=== PATIENT | male | born 1930 | race Caucasian/White ===

== ENCOUNTER 2017-02-12 13:44 | Emergency (ER) | payer OTHER, MEDICARE ==
[~2017-02-12] VITALS: Ht 177.8 cm; Wt 97.2 kg
[~2017-02-12 13:44] MED LIST: ALBU18HF2 IH; ALBU2.5V7 INH; ARFO15VI3 INH; ATOR10TA20 PO; BIMA2.5D6 BOTH EYES; CLOP75TA PO; FAMO-14 PO; FINA5TAB40 PO; FURO20TA4 PO; IRON1TAB PO; LISI-127 PO; NITR0.4T SL; POTA10TA14 PO
[2017-02-12 13:47] VITALS: Ht 177.8 cm; Wt 97.2 kg
--- OUTSIDE RECORDS SUMMARY | 2017-02-12 13:49 | XMS REPORT | CCD ---
Author Author PIPE CRANDALL Organization Unknown Address [address] [place] [phone] Phone 0 Care Team Providers Care Ventilating Equipment Installer Name Role Phone FOZIA TINEO Attending Physician 0 F., LEILA Nurse Assisstant 0 J., ANKUR Nurse Assisstant 0 Vital Signs Unknown or Not Available. Allergies Allergy Code Allergy Type Reaction Status No Known Drug Allergies 0 No known drug allergies Active Procedures Unknown or Not Available. History of Immunizations Unknown or Not Available. Problems Unknown or Not Available. Results PT/INR - Collect Date/Time: 05/01/2015 06:45 Test Name Code Test Result Test Units Test Ref Range PT 27.0 Secs L=9.2 H=10.8 INR 2.54 L=0.00 H=4.00 PT/INR - Collect Date/Time: 04/30/2015 06:40 Test Name Code Test Result Test Units Test Ref Range PT 21.9 Secs L=9.2 H=10.8 INR 2.09 L=0.00 H=4.00 PT/INR - Collect Date/Time: 04/29/2015 06:40 Test Name Code Test Result Test Units Test Ref Range PT 16.3 Secs L=9.2 H=10.8 INR 1.58 L=0.00 H=4.00 PT/INR - Collect Date/Time: 04/28/2015 06:45 Test Name Code Test Result Test Units Test Ref Range PT 13.8 Secs L=9.2 H=10.8 INR 1.35 L=0.00 H=4.00 PT/INR - Collect Date/Time: 04/27/2015 06:45 Test Name Code Test Result Test Units Test Ref Range PT 14.5 Secs L=9.2 H=10.8 INR 1.42 L=0.00 H=4.00 PT/INR - Collect Date/Time: 04/26/2015 06:55 Test Name Code Test Result Test Units Test Ref Range PT 16.0 Secs L=9.2 H=10.8 INR 1.56 L=0.00 H=4.00 PT/INR - Collect Date/Time: 04/25/2015 06:55 Test Name Code Test Result Test Units Test Ref Range PT 16.0 Secs L=9.2 H=10.8 INR 1.56 L=0.00 H=4.00 PT/INR - Collect Date/Time: 04/24/2015 06:45 Test Name Code Test Result Test Units Test Ref Range PT 18.2 Secs L=9.2 H=10.8 INR 1.76 L=0.00 H=4.00 PT/INR - Collect Date/Time: 04/23/2015 06:35 Test Name Code Test Result Test Units Test Ref Range PT 11.8 Secs L=9.2 H=10.8 INR 1.17 L=0.00 H=4.00 Active Medications Unknown or Not Available. Medications Administered During Visit Unknown or Not Available. Encounters Encounter Diagnosis Diagnosis Code Start Date ACU TANVI EMB/[place] [address] 04/23/2015 Social History Smoking Status Code Start Date End Date Unknown if ever smoked [id number] Patient Decision Aids Unknown or Not Available. Discharge Instructions You were admitted to [facility] on 04/23/2015 with a principal diagnosis of ACU TANVI EMB/THROM UNSPEC DP VESS LE. You were discharged from [facility] on 05/01/2015. Should you have any questions prior to discharge, please contact a member of your healthcare team. If you have left the hospital and have any questions, please contact your primary care physician. Chief Complaint and Reason For Visit Unknown or Not Available. Function Status Unknown or Not Available. Plan of Care Unknown or Not Available. Referral/Transition of Care Unknown or Not Available.
--- OUTSIDE RECORDS SUMMARY | 2017-02-12 13:49 | XMS REPORT | Referral Summary ---
Author Author [facility] Organization [facility] Address Unknown Phone Unavailable Care Team Providers Care Railroad Mechanic Name Role Phone Shannan Villarreal Primary Care Physician [phone] Encounter VC Date(s): 04/09/15 - 04/09/15 [facility] [address] [place] [address] LEANDER Kang [id number] Discharge Diagnosis: BPH Discharge Diagnosis: History of bladder cancer Discharge Diagnosis: History of kidney stones Discharge Disposition: -Home or Self Care Attending Physician: Donta Rey JR, MD Admitting Physician: Donta Rey JR, MD Referring Physician: Toi Saunders DO Vital Signs Most recent to 1 oldest [Reference Range]: Peripheral Pulse 82 bpm Rate [60-100 bpm] (04/09/15 9:22 AM) Blood Pressure 124/66 mmHg [90-140/60-90 mmHg] (04/09/15 9:22 AM) SpO2 95 % (04/09/15 9:22 AM) Problem List Condition Effective Dates Status Health Status Informant History of left Active upper quadrant/abdominal/f lank pain(Confirmed) History of Active hydronephrosis,hemat uria, and BPH with prostatism(Confirmed ) Kidney Active stone(Confirmed) Bladder Active cancer(Confirmed) Obesity(Confirmed) Active patient Obesity(Confirmed) Active patient BPH with prostatism Active Prostatism(Confirmed ) Allergies, Adverse Reactions, Alerts No Known Medication Allergies Medications Advair Diskus 100 mcg-50 mcg inhalation powder puffs, Inhalation, BID, 0 Refill(s) Start Date: 03/11/14 Status: Ordered enalapril 2.5 mg oral tablet 1 tabs, Oral, Daily, 0 Refill(s) Start Date: 03/11/14 Status: Ordered famotidine 10 mg oral tablet 1 tabs, Oral, BID, 0 Refill(s) Start Date: 03/11/14 Status: Ordered finasteride 5 mg oral tablet See Instructions, TAKE ONE TABLET BY MOUTH ONCE DAILY, # 90 tabs, 3 Refill(s), TAKE ONE TABLET BY MOUTH ONCE DAILY Start Date: 04/09/15 Status: Ordered FML S.O.P. 0.1% ophthalmic ointment 1 keysha, Eye-Both, TID, # 3.5 g, 0 Refill(s) Start Date: 03/11/14 Status: Ordered garlic 0 Refill(s) Start Date: 03/11/14 Status: Ordered Geritol Complete tabs, Oral, Daily, 0 Refill(s) Start Date: 03/11/14 Status: Ordered hydrochlorothiazide 12.5 mg oral tablet 1 tabs, Oral, Daily, 0 Refill(s) Start Date: 03/11/14 Status: Ordered Lipitor 10 mg oral tablet 1 tabs, Oral, Bedtime (once a day), 0 Refill(s) Start Date: 03/11/14 Status: Ordered magnesium oxide 250 mg, Oral, 0 Refill(s) Start Date: 03/11/14 Status: Ordered tamsulosin 0.4 mg oral capsule 1 caps, Oral, Daily, # 30 caps, 0 Refill(s), Pharmacy: [id number], 1 caps Oral Daily Start Date: 11/14/14 Status: Ordered Ventolin HFA puffs, Inhalation, QID, 0 Refill(s) Start Date: 03/11/14 Status: Ordered Vitamin B6 50 mg oral tablet 1 tabs, Oral, Daily, 0 Refill(s) Start Date: 03/11/14 Status: Ordered Vitamin C 0 Refill(s) Start Date: 03/11/14 Status: Ordered Vitamin D3 1000unit, Oral, 0 Refill(s) Start Date: 03/11/14 Status: Ordered vitamin E 1000unit, Oral, Daily, 0 Refill(s) Start Date: 03/11/14 Status: Ordered Results Hematology Most recent to 1 oldest [Reference Range]: WBC [5.0-10.0 6.5 10*3/uL 10*3/uL] (04/09/15 8:55 AM) RBC [3.70-5.20 5.36 10*6/uL 10*6/uL] *HI* (04/09/15 8:55 AM) Hgb [12.0-16.0 16.9 gm/dL gm/dL] *HI* (04/09/15 8:55 AM) Hct [40.0-54.0 %] 49.5 % (04/09/15 8:55 AM) MCV [80.0-96.0 fL] 92.4 fL (04/09/15 8:55 AM) MCH [26.0-34.0 pg] 31.5 pg (04/09/15 8:55 AM) MCHC [32.0-36.0 34.1 gm/dL gm/dL] (04/09/15 8:55 AM) RDW [0.0-14.5 %] 13.4 % (04/09/15 8:55 AM) Platelet [150-400 221 10*3/uL 10*3/uL] (04/09/15 8:55 AM) MPV [8.8-14.8 fL] 10.2 fL (04/09/15 8:55 AM) Neutrophils [50-70 68 % %] (04/09/15 8:55 AM) Lymphocytes [20-40 16 % %] *LOW* (04/09/15 8:55 AM) Monocytes [4-8 %] 14 % *HI* (04/09/15 8:55 AM) Eosinophils [0-6 %] 2 % (04/09/15 8:55 AM) Basophils [0-2 %] 1 % (04/09/15 8:55 AM) Neutro Absolute 4.43 10*3 [2.50-7.00 10*3] (04/09/15 8:55 AM) Lymph Absolute 1.06 10*3 [1.00-4.00 10*3] (04/09/15 8:55 AM) [place] Absolute 0.89 10*3 [0.20-0.80 10*3] *HI* (04/09/15 8:55 AM) Eos Absolute 0.12 10*3 [0.00-0.60 10*3] (04/09/15 8:55 AM) Baso Absolute 0.04 10*3 [0.00-0.30 10*3] (04/09/15 8:55 AM) Chemistry Most recent to 1 oldest [Reference Range]: PSA (wihout Reflex 0.1 ng/mL 1 Free) [0.0-6.5 (04/09/15 8:55 AM) ng/mL] 1Result Comment: AUA PSA Best Practice Guidelines: Age-Adjusted PSA Values by Ethnic Group Age Range Asians - Caucasians Americans 40-49 0-2.0 0-2.0 0-2.5 50-59 0-3.0 0-4.0 0-3.5 60-69 0-4.0 0-4.5 0-4.5 70-79 0-5.0 0-5.5 0-6.5 Urinalysis Most recent to 1 oldest [Reference Range]: UA Color Yellow (04/09/15 9:00 AM) UA Appear Clear (04/09/15 9:00 AM) UA pH [5.0-8.0] 6.0 (04/09/15 9:00 AM) UA Leuk Est Negative [Negative] (04/09/15 9:00 AM) UA Nitrite Negative [Negative] (04/09/15 9:00 AM) UA Protein Trace [Negative] *ABN* (04/09/15 9:00 AM) UA Glucose Negative [Negative] (04/09/15 9:00 AM) UA Ketones Negative [Negative] (04/09/15 9:00 AM) UA Urobilinogen 0.2 mg/dL (04/09/15 9:00 AM) UA Bili [Negative] Negative (04/09/15 9:00 AM) UA Blood Negative (04/09/15 9:00 AM) UA Spec Grav 1.020 [1.003-1.030] (04/09/15 9:00 AM) Type Cl Catch (04/09/15 9:00 AM) Immunizations No data available for this section Procedures Procedure Date Related Diagnosis Body Site Cystoscopy 02/20/13 Cystoscopy 12/29/10 Cystoscopy-no recurrent bladdr cancer 06/11/10 Cystoscopy 08/21/09 Cystoscopy 02/11/09 Cystoscopy, bladder biopsy, and fulguration 11/26/08 Procedure- BCG bladder instillation 11/04/08 Procedure- BCG bladder instillation 10/21/08 Procedure-4th BCG bladder instillation 10/07/08 Procedure-3rd BCG bladder instillation 09/30/08 Procedure-2nd BCG bladder instillation 09/23/08 Procedure-1st BCG bladder instillation 09/09/08 Cystoscopy, hydrodistention and bladder 08/11/08 biopsy Left renal Lithotripsy 04/19/06 Cystourethroscopy, and removal of double j 06/13/01 stent Lithotripsy 06/06/01 Lithotripsy 05/30/01 Cystourethroscopy, and insertion of double j 05/28/01 stent Social History Social History Type Response Smoking Status Former smoker Assessment and Plan Extracted from: Title: Ambulatory Patient Education Author: Donta Rey JR, MD Date : 04/09/15 Follow Up With: Where: When: Toi Saunders [address] [place] [address] Business (1) Within 3 to 5 days Comments: Follow Up With: Where: When: Donta Rey [address] [place] [address] Drive; [address] [place], [place] [phone] Business (1) In 1 year 04/09/2016 Comments: Extracted from: Title: Office Visit Note Author: Donta Rey JR, MD Date: 04/09/15 Assessment/Plan BPH continue finasteride and tamsulosin. Recheck in my office in a year or sooner if needed PSA a week before next visit. With regards to the follow-up of his bladder cancer, AP is voiding well have not seen any bleeding the urine I would not see him again also in about a year. With regards to his kidney stones in time he has pain especially on the flank or bladder area to come and see me immediately instead of waiting for months. Patient instructed to drink at least 8-10 glasses of liquids a day, reduce intake of caffeine red meat nuts and too much salted food. This was a 30 minute face to face visit with 1/2 of the visit devoted to counseling the patient. Ordered: Office Visit Level 4 Est 58281 Prostate Specific Antigen History of bladder cancer Ordered: Office Visit Level 4 Est 73039 History of kidney stones Ordered: Office Visit Level 4 Est 07712 Orders: finasteride, See Instructions, TAKE ONE TABLET BY MOUTH ONCE DAILY, # 90 tabs, 3 Refill(s), TAKE ONE TABLET BY MOUTH ONCE DAILY
--- OUTSIDE RECORDS SUMMARY | 2017-02-12 13:49 | XMS REPORT | Referral Summary ---
Author Author [facility] Organization [facility] Address Unknown Phone Unavailable Care Team Providers Care Middle School English Teacher Name Role Phone Shannan Villarreal Primary Care Physician [phone] Encounter VC Date(s): 04/09/15 - 04/09/15 [facility] [address] [place] [address] LEANDER Kang [id number] Discharge Diagnosis: BPH Discharge Diagnosis: History of [...] Daily, # 30 caps, 0 Refill(s), Pharmacy: [id number], 1 caps Oral Daily Start [...] 1.06 10*3 [1.00-4.00 10*3] (04/09/15 8:55 AM) [place] Absolute 0.89 10*3 [0.20-0.80 10*3] *HI* (04/09/15 [...] Where: When: Toi Saunders [address] [place] [address] Business (1) Within 3 to 5 days Comments: Follow Up With: Where: When: Donta Rey [address] [place] [address] Drive; [address] [place], [place] [phone] Business (1) In 1 year 04/09/2016 Comments: [...] patient. Ordered: Office Visit Level 4 Est 92734 Prostate Specific Antigen History of bladder cancer Ordered: Office Visit Level 4 Est 86900 History of kidney stones Ordered: Office Visit Level 4 Est 14932 Orders: finasteride, See Instructions, TAKE ONE TABLET BY MOUTH ONCE DAILY, # 90 tabs, 3 Refill(s), TAKE ONE TABLET BY MOUTH ONCE DAILY
--- OUTSIDE RECORDS SUMMARY | 2017-02-12 13:49 | XMS REPORT | CCD ---
Author Author PIPE CRANDALL Organization Unknown Address [address] [place] [phone] Phone 0 Care Team Providers Care Catering Sales Manager Name Role Phone JERMAN GANN Attending Physician [phone] Vital Signs Unknown or Not Available. Allergies Allergy Code Allergy Type Reaction Status No Known Drug Allergies 0 No known drug allergies Active Procedures Unknown or Not Available. History of Immunizations Unknown or Not Available. Problems Unknown or Not Available. Results COMP METABOLIC - Collect Date/Time: 09/10/2014 08:25 Test Name Code Test Result Test Units Test Ref Range GLUCOSE 95 mg/dL L=70 H=110 BUN 15 mg/dL L=7 H=18 CREATININE 1.20 mg/ dL L=0.60 H=1.30 AGE 83 YEARS GFR 61.3 SODIUM 140 mmol/L L=136 H=145 POTASSIUM 3.9 mmol/ L L=3.5 H=5.1 CHLORIDE 101 mmol/L L=98 H=107 CO2 34 mmol/L L=21 H=32 CALCIUM 9.5 mg/dL L=8.5 H=10.1 AST 16 U/L L=15 H=37 ALT 29 U/L L=12 H=78 ALKALINE PHOS 93 U/ L L=46 H=116 TOTAL PROTEIN 7.5 g/ dL L=6.4 H=8.2 ALBUMIN 3.6 g/dL L=3.4 H=5.0 TOTAL BILI 0.60 mg/ dL L=0.00 H=1.00 HGB A1C - Collect Date/Time: 09/10/2014 08:25 Test Name Code Test Result Test Units Test Ref Range HGB A1C 5.5 % L=4.5 H=6.2 eAG 111 mg/dL LIPID PANEL - Collect Date/Time: 09/10/2014 08:25 Test Name Code Test Result Test Units Test Ref Range CHOLESTEROL 148 mg/ dL L=0 H=200 TRIGLYCERIDES 118 mg /dL L=30 H=150 HDL 57 mg/dL L=40 H=60 LDL, CALC 67 mg/dL L=0 H=100 VLDL 24 mg/dL L=0 H=40 CHOL/HDL RISK 2.6 RATIO L=0.0 H=5.0 PT FASTING: YES N/A PSA - SCREENING - Collect Date/Time: 09/10/2014 08:25 Test Name Code Test Result Test Units Test Ref Range PSA SCREEN 0.19 ng/ mL L=0.00 H=4.00 MICROALBUMIN/CREATININE RATIO - Collect Date/Time: 09/10/2014 08:30 Test Name Code Test Result Test Units Test Ref Range MICROALBUMIN 1.7 mg/ dL L=0.1 H=2.0 CREAT, URINE 162.1 mg/dL MICROALB/CREAT 10.5 ug/mg L=0.0 H=29.9 CBC W/ DIFF - Collect Date/Time: 09/10/2014 08:25 Test Name Code Test Result Test Units Test Ref Range WBC 6.9 x10^3 L=4.8 H=10.8 RBC 5.23 x10^6 L=4.70 H=6.10 HEMOGLOBIN 15.8 g/ dL L=14.0 H=18.0 HEMATOCRIT 48.5 % L=42.0 H=52.0 MCV 93 fL L=80 H=100 MCH 30.3 pg L=27.0 H=33.0 MCHC 32.6 g/dL L=33.0 H=37.0 RDW 13.9 % L=11.5 H=14.5 PLATELETS 310 x10^3 L=150 H=450 MPV 8.3 fL L=7.8 H=11.0 NEUTROPHILS 64.9 % L=40.0 H=80.0 LYMPHOCYTES 19.8 % L=20.0 H=45.0 MONOCYTES 12.4 % L=0.0 H=10.0 EOSINOPHILS 2.4 % L=0.0 H=5.0 BASOPHILS 0.5 % L=0.0 H=2.0 REFLEX MAN DIFF NO N /A UA AUTO W/ MICRO - Collect Date/Time: 09/10/2014 08:30 Test Name Code Test Result Test Units Test Ref Range COLOR Yellow N/A NORMAL: Yellow APPEARANCE Clear N/ A NORMAL: Clear GLUCOSE Negative N/ A NORMAL: Negative BILIRUBIN Negative N /A NORMAL: Negative KETONE Negative N/A NORMAL: Negative SPEC GRAVITY 1.020 N /A NORMAL: 1.005-1.030 BLOOD Large N/A PROTEIN Negative N/ A NORMAL: Negative PH 6.0 N/A NORMAL: 5.0-8.0 UROBILINOGEN 1.0 N/ A NORMAL: 0.2-1.0 NITRITE Negative N/ A NORMAL: Negative LEUKOCYTES Negative N/A NORMAL: Negative MICRO RBC 10-20 N/A NORMAL: 0-2 MICRO WBC 0-2 N/A NORMAL: 0-2 BACTERIA None Seen N /A NORMAL: None-Trace EPI CELLS None Seen N/A NORMAL: 0-15 MUCUS Trace N/A NORMAL: None-Small AMORPHOUS None Seen N/A NORMAL: None Seen YEAST None Seen N/A NORMAL: None Seen CRYSTALS None Seen N /A NORMAL: None Seen CAST None Seen N/A NORMAL: None Seen URINE CULTURE? NO N/ A Active Medications Unknown or Not Available. Medications Administered During Visit Unknown or Not Available. Encounters Encounter Diagnosis Diagnosis Code Start Date HYPERLIPIDEMIA NEC NOS 2724 09/10/2014 Social History Smoking Status Code Start Date End Date Unknown if ever smoked [id number] Patient Decision Aids Unknown or Not Available. Discharge Instructions You were admitted to [facility] on 09/10/2014 with a principal diagnosis of HYPERLIPIDEMIA NEC NOS. You were discharged from [facility] on 09/10/2014. Should you have any questions prior to discharge, please contact a member of your healthcare team. If you have left the hospital and have any questions, please contact your primary care physician. Chief Complaint and Reason For Visit Chief Complaint Date of Onset LAB Function Status Unknown or Not Available. Plan of Care Unknown or Not Available. Referral/Transition of Care Unknown or Not Available.
--- OUTSIDE RECORDS SUMMARY | 2017-02-12 13:49 | XMS REPORT | CCD ---
Author Author PIPE CRANDALL Organization Unknown Address [address], [place] [phone] Phone 0 Care Team Providers Care Oceanography Professor Name Role Phone JERMAN GANN Attending Physician [phone] Vital Signs Unknown or Not Available. Allergies Allergy Code Allergy Type Reaction Status No Known Drug Allergies 0 No known drug allergies Active Procedures Unknown or Not Available. History of Immunizations Unknown or Not Available. Problems Unknown or Not Available. Results Unknown or Not Available. Active Medications Unknown or Not Available. Medications Administered During Visit Unknown or Not Available. Encounters Encounter Diagnosis Diagnosis Code Start Date HEMATURIA UNSPECIFIED 28713 09/11/2014 Social History Smoking Status Code Start Date End Date Unknown if ever smoked [id number] Patient Decision Aids Unknown or Not Available. Discharge Instructions You were admitted to [facility] on 09/11/2014 with a principal diagnosis of HEMATURIA UNSPECIFIED. You were discharged from [facility] on 09/11/2014. Should you have any questions prior to [...]
--- OUTSIDE RECORDS SUMMARY | 2017-02-12 13:49 | XMS REPORT ---
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 666076630086986 Problem Chronic obstructive pulmonary disease, unspecified J44.9 Active 60425969 Problem Hyperlipidemia, unspecified E78.5 Active 60689586 Problem Essential (primary) hypertension I10 Active 32936664 Problem Intercostal pain R07.82 Active 37869109 Problem Acute embolism and thrombosis of unspecified deep veins of right lower extremity I82.401 Active 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
--- OUTSIDE RECORDS SUMMARY | 2017-02-12 13:49 | XMS REPORT | CCD ---
Author Author ZANDRA REAL Organization Unknown Address [address] [place] [phone] Phone 0 Care Team Providers Care Cigarette Tester Name Role Phone FOZIA TINEO Attending Physician 0 JERMAN GANN Rounding Physician [phone] Vital Signs Unknown or Not Available. Allergies Allergy Code Allergy Type Reaction Status No Known Drug Allergies 0 No known drug allergies Active Procedures Unknown or Not Available. History of Immunizations Unknown or Not Available. Problems Unknown or Not Available. Results PT/INR - Collect Date/Time: 05/19/2015 07:50 Test Name Code Test Result Test Units Test Ref Range PT 22.1 Secs L=9.2 H=10.8 INR 2.11 L=0.00 H=4.00 PT/INR - Collect Date/Time: 05/14/2015 07:40 Test Name Code Test Result Test Units Test Ref Range PT 33.3 Secs L=9.2 H=10.8 INR 3.10 L=0.00 H=4.00 PT/INR - Collect Date/Time: 05/11/2015 06:45 Test Name Code Test Result Test Units Test Ref Range PT 25.4 Secs L=9.2 H=10.8 INR 2.40 L=0.00 H=4.00 PT/INR - Collect Date/Time: 05/06/2015 06:58 Test Name Code Test Result Test Units Test Ref Range PT 32.5 Secs L=9.2 H=10.8 INR 3.03 L=0.00 H=4.00 PT/INR - Collect Date/Time: 05/04/2015 06:45 Test Name Code Test Result Test Units Test Ref Range PT 27.2 Secs L=9.2 H=10.8 INR 2.56 L=0.00 H=4.00 Active Medications Unknown or Not Available. Medications Administered During Visit Unknown or Not Available. Encounters Encounter Diagnosis Diagnosis Code Start Date ACU TANVI EMB[place] [address] 05/04/2015 Social History Smoking Status Code Start Date End Date Unknown if ever smoked [id number] Patient Decision Aids Unknown or Not Available. Discharge Instructions You were admitted to [facility] on 05/04/2015 with a principal diagnosis of ACU TANVI EMB/THROM UNSPEC DP VESS LE. Should you have any questions prior to discharge, please contact a member of your healthcare team. If you have left the hospital and have any questions, please contact your primary care physician. Chief Complaint and Reason For Visit Chief Complaint Date of Onset RECURRING OP Function Status Unknown or Not Available. Plan of Care Unknown or Not Available. Referral/Transition of Care Unknown or Not Available.
--- OUTSIDE RECORDS SUMMARY | 2017-02-12 13:49 | XMS REPORT | CCD ---
Author Author NARCISA MUELLER Organization Unknown Address [address], [place] [id number] Phone 0 Care Team Providers Care Safety Attendant Name Role Phone JERMAN GANN Attending Physician [phone] Vital Signs Unknown or Not Available. Allergies Allergy Code Allergy Type Reaction Status No Known Drug Allergies 0 No known drug allergies Active Procedures Unknown or Not Available. History of Immunizations Unknown or Not Available. Problems Unknown or Not Available. Results PT/INR - Collect Date/Time: 2015 08:20 Test Name Code Test Result Test Units Test Ref Range PT 22.5 Secs L=9.2 H=10.8 INR 2.14 L=0.00 H=4.00 Active Medications Unknown or Not Available. Medications Administered During Visit Unknown or Not Available. Encounters Encounter Diagnosis Diagnosis Code Start Date Acute embolism and thrombosis of unspecified deep veins of unspecified lower extremity S71751 2015 Social History Smoking Status Code Start Date End Date Unknown if ever smoked 638881512 Patient Decision Aids Unknown or Not Available. Discharge Instructions You were admitted to [facility] on 2015 08:20 with a principal diagnosis of Acute embolism and [place]omb[place] unsp deep vn unsp lower extr You had the following tests done: PT/ INR You were discharged from [facility] Should you have any questions prior to discharge, please contact a member of your healthcare team. If you have left the hospital and have any questions, please contact your primary care physician. Chief Complaint and Reason For Visit Chief Complaint Date of Onset RECURRING LABS Function Status Unknown or Not Available. Plan of Care Unknown or Not Available. Referral/Transition of Care Unknown or Not Available.
--- OUTSIDE RECORDS SUMMARY | 2017-02-12 13:49 | XMS REPORT | CCD ---
Author Author NARCISA MUELLER Organization Unknown Address [address], [place] [address] Phone 0 Care Team Providers Care Model Dresser Name Role Phone Alice KILPATRICK Attending Physician [phone] JERMAN GANN Rounding Physician [phone] Vital Signs Unknown or Not Available. Allergies Allergy Code Allergy Type Reaction Status No Known Drug Allergies 0 No known drug allergies Active Procedures Unknown or Not Available. History of Immunizations Unknown or Not Available. Problems Unknown or Not Available. Results BASIC METABOLIC - Collect Date/Time: 03/02/2016 07:55 Test Name Code Test Result Test Units Test Ref Range GLUCOSE 101 mg/dL L=70 H=110 BUN 17 mg/dL L=7 H=18 CREATININE 1.15 mg/ dL L=0.60 H=1.30 AGE 85 YEARS GFR 60.3 SODIUM 139 mmol/L L=136 H=145 POTASSIUM 3.9 mmol/ L L=3.5 H=5.1 CHLORIDE 102 mmol/L L=98 H=107 CO2 29 mmol/L L=21 H=32 CALCIUM 9.3 mg/dL L=8.5 H=10.1 HEPATIC FUNCTION - Collect Date/Time: 03/02/2016 07:55 Test Name Code Test Result Test Units Test Ref Range AST 19 U/L L=15 H=37 ALT 26 U/L L=12 H=78 ALKALINE PHOS 78 U/ L L=46 H=116 TOTAL PROTEIN 7.6 g/ dL L=6.4 H=8.2 ALBUMIN 3.6 g/dL L=3.4 H=5.0 TOTAL BILI 0.80 mg/ dL L=0.00 H=1.00 DIRECT BILI 0.10 mg/ dL L=0.00 H=0.30 LIPID PANEL - Collect Date/Time: 03/02/2016 07:55 Test Name Code Test Result Test Units Test Ref Range CHOLESTEROL 146 mg/ dL L=0 H=200 TRIGLYCERIDES 96 mg/ dL L=30 H=150 HDL 55 mg/dL L=40 H=60 LDL, CALC 72 mg/dL L=0 H=100 VLDL 19 mg/dL L=0 H=40 CHOL/HDL RISK 2.7 RATIO L=0.0 H=5.0 PT FASTING: YES N/A PT/INR - Collect Date/Time: 03/02/2016 07:55 Test Name Code Test Result Test Units Test Ref Range PT 20.4 Secs L=9.2 H=10.8 INR 1.95 L=0.00 H=4.00 Active Medications Unknown or Not Available. Medications Administered During Visit Unknown or Not Available. Encounters Encounter Diagnosis Diagnosis Code Start Date Hyperlipidemia, unspecified E785 2015 Social History Smoking Status Code Start Date End Date Unknown if ever smoked [id number] Patient Decision Aids Unknown or Not Available. Discharge Instructions You were admitted to [facility] on 03/02/2016 07:48 with a principal diagnosis of Hyperlipidemia, unspecified You had the following tests done: BASIC METABOLIC HEPATIC FUNCTION LIPID PANEL PT/INR You were discharged from [facility] Should you have any questions [...]
--- OUTSIDE RECORDS SUMMARY | 2017-02-12 13:49 | XMS REPORT | CCD ---
Author Author NARCISA MUELLER Organization Unknown Address [address], [place] [address] Phone 0 Care Team Providers Care Satellite Tv Installer Name Role Phone JERMAN GANN Attending Physician [phone] Alice KILPATRICK Rounding Physician [phone] Vital Signs Unknown or Not Available. Allergies Allergy Code Allergy Type Reaction Status No Known Drug Allergies 0 No known drug allergies Active Procedures Procedure Code Procedure Type Date CHEST [id number] 01/08/2016 History of Immunizations Unknown or Not Available. Problems Unknown or Not Available. Results COMP METABOLIC - Collect Date/Time: 01/08/2016 08:45 Test Name Code Test Result Test Units Test Ref Range GLUCOSE 111 mg/dL L=70 H=110 BUN 18 mg/dL L=7 H=18 CREATININE 1.18 mg/ dL L=0.60 H=1.30 AGE 85 YEARS GFR 58.5 SODIUM 141 mmol/L L=136 H=145 POTASSIUM 3.8 mmol/ L L=3.5 H=5.1 CHLORIDE 103 mmol/L L=98 H=107 CO2 31 mmol/L L=21 H=32 CALCIUM 9.0 mg/dL L=8.5 H=10.1 AST 21 U/L L=15 H=37 ALT 33 U/L L=12 H=78 ALKALINE PHOS 81 U/ L L=46 H=116 TOTAL PROTEIN 7.5 g/ dL L=6.4 H=8.2 ALBUMIN 3.8 g/dL L=3.4 H=5.0 TOTAL BILI 0.60 mg/ dL L=0.00 H=1.00 PRO B-TYPE NATRIURETIC PEPTIDE - Collect Date/Time: 01/08/2016 08:45 Test Name Code Test Result Test Units Test Ref Range PBNP 636 pg/mL L=0 H=450 CBC (HEMOGRAM ONLY) - Collect Date/Time: 01/08/2016 08:45 Test Name Code Test Result Test Units Test Ref Range WBC 5.9 x10^3 L=4.8 H=10.8 RBC 5.32 x10^6 L=4.70 H=6.10 HEMOGLOBIN 16.0 g/ dL L=14.0 H=18.0 HEMATOCRIT 48.4 % L=42.0 H=52.0 MCV 91 fL L=80 H=100 MCH 30.1 pg L=27.0 H=33.0 MCHC 33.1 g/dL L=33.0 H=37.0 RDW 14.1 % L=11.5 H=14.5 PLATELETS 213 x10^3 L=150 H=450 MPV 8.8 fL L=7.8 H=11.0 Active Medications Unknown or Not Available. Medications Administered During Visit Unknown or Not Available. Encounters Encounter Diagnosis Diagnosis Code Start Date Unspecified atrial fibrillation [id number] 05/2016 Social History Smoking Status Code Start Date End Date Unknown if ever smoked [id number] Patient Decision Aids Unknown or Not Available. Discharge Instructions You were admitted to [facility] on 01/08/2016 08:37 with a principal diagnosis of Unspecified atrial fibrillation You had the following tests done: CBC ( HEMOGRAM ONLY) COMP METABOLIC PRO B- TYPE NATRIURETIC PEPTIDE You were discharged from [facility] on 01/08/2016 08:37 Should you have any questions prior to discharge, please contact a member of your healthcare team. If you have left the hospital and have any questions, please contact your primary care physician. Chief Complaint and Reason For Visit Chief Complaint Date of Onset US VENOUS RT LOWER EXT EKG LAB Function Status Unknown or Not Available. Plan of Care Unknown or Not Available. Referral/Transition of Care Unknown or Not Available.
--- OUTSIDE RECORDS SUMMARY | 2017-02-12 13:49 | XMS REPORT | CCD ---
Author Author NARCISA MUELLER Organization Unknown Address [address], [place] [address] Phone 0 Care Team Providers Care Talent Acquisition Specialist Name Role Phone JERMAN GANN Attending Physician [phone] Vital Signs Unknown or Not Available. Allergies Allergy Code Allergy Type Reaction Status No Known Drug Allergies 0 No known drug allergies Active Procedures Unknown or Not Available. History of Immunizations Unknown or Not Available. Problems Unknown or Not Available. Results MICROALBUMIN/CREATININE RATIO - Collect Date/Time: 04/19/2016 08:45 Test Name Code Test Result Test Units Test Ref Range MICROALBUMIN 3.3 mg/ dL L=0.1 H=2.0 CREAT, URINE 155.5 mg/dL MICROALB/CREAT 21.2 ug/mg L=0.0 H=29.9 PT/INR - Collect Date/Time: 04/19/2016 08:43 Test Name Code Test Result Test Units Test Ref Range PT 21.3 Secs L=9.4 H=11.0 INR 2.12 L=0.00 H=4.00 Active Medications Unknown or Not Available. Medications Administered During Visit Unknown or Not Available. Encounters Encounter Diagnosis Diagnosis Code Start Date Acute embolism and thrombosis of unspecified deep veins of unspecified lower extremity [id number] 04/19/2016 Social History Smoking Status Code Start Date End Date Unknown if ever smoked [id number] Patient Decision Aids Unknown or Not Available. Discharge Instructions You were admitted to [facility] on 04/19/2016 08:36 with a principal diagnosis of Acute embolism and thombos unsp deep vn unsp lower extr You had the following tests done: MICROALBUMIN/CREATININE RATIO PT/INR You were discharged from [facility] on 05/01/2016 23:59 Should you have any questions prior to [...]
--- OUTSIDE RECORDS SUMMARY | 2017-02-12 13:49 | XMS REPORT | Referral Summary ---
Author Author [facility] Organization [facility] Address Unknown Phone Unavailable Care Team Providers Care Media Theorist And Author Of Name Role Phone Shannan Villarreal Primary Care Physician [phone] Encounter VC Date(s): 07/30/15 - 07/30/15 [facility] [address] [place] [address] LEANDER Kang [id number] Discharge Diagnosis: Recent cerebrovascular accident Discharge Diagnosis: Microscopic hematuria Discharge Diagnosis: Bladder cancer Discharge Disposition: 01-Home or Self Care Attending Physician: Donta Rey JR, MD Admitting Physician: Donta Rey JR, MD Referring Physician: Zulma Villarreal (Nita) Vital Signs Most recent to 1 oldest [Reference Range]: Peripheral Pulse 87 bpm Rate [60-100 bpm] (07/30/15 3:27 PM) Blood Pressure 140/62 mmHg [90-140/60-90 mmHg] (07/30/15 3:27 PM) Problem List Condition Effective Dates Status Health [...] Daily, # 30 caps, 0 Refill(s), Pharmacy: [id number], 1 caps Oral Daily [...] Refill(s) Start Date: 03/11/14 Status: Ordered Results No data available for this section Immunizations No data available for this section Procedures Procedure Date Related Diagnosis Body Site Cystoscopy 02/20/13 Cystoscopy 12/29/10 Cystoscopy-no recurrent bladdr cancer 06/11/10 Cystoscopy 08/21/09 Cystoscopy 02/11/09 Cystoscopy, bladder biopsy, and fulguration 11/26/08 Procedure-6th BCG bladder instillation 11/04/08 Procedure-5th BCG bladder instillation 10/21/08 Procedure-4th BCG bladder [...] Author: Donta Rey JR, MD Date : 07/30/15 Follow Up With: Where: When: Zulma (Shruti) Phil [address] [place] [address] Business (1) Within 3 to 5 days Comments: Follow Up With: Where: When: Donta Rey [address] [place] [address] Drive; [address] [place], [place] [id number] Business (1) In 6 weeks 09/10/2015 Comments: Extracted from: Title: Office Visit Note Author: Donta Rey JR, MD Date: 07/30/15 Assessment/Plan 1.Bladder cancer most recent cystoscopy done about 6 month ago revealed no recurrent bladder cancer seen 2.Recent cerebrovascular accident patient takes warfarin 9 mg daily Microscopic hematuria CAT scan that was done recently showed no evidence of any suspicious lesion in the bladder ureter or kidney. Suspecting strongly that the [employer] hematuria might be due to the and is taking for his cerebrovascular accident and blood clots on his right leg. We'll repeat urinalysis in 6 weeks or to come and see me sooner if he notices gross hematuria. Therisk of doing cystoscopy on a patient for I have to take him stop taking the warfarin would be too risky at the present time because of recent cerebrovascular accident and blood clots in the right leg CAT scan of the abdomen and pelvis revealed no abnormalities in the urinary bladder Ordered: Office Visit Level 3 Est 05971 Urinalysis with Culture if Indicated
--- OUTSIDE RECORDS SUMMARY | 2017-02-12 13:49 | XMS REPORT ---
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.2 Active Problem Acute embolism and thrombosis of unspecified deep veins of right lower extremity I82.401 Active Problem Transient cerebral ischemic attack, unspecified G45.9 Active Problem Intercostal pain R07.82 Active Problem Atherosclerotic heart disease of [place] coronary artery without angina pectoris I25.10 Active Problem Presence of cardiac pacemaker Z95.0 Active Problem Shortness of breath R06.02 Active Problem 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
--- OUTSIDE RECORDS SUMMARY | 2017-02-12 13:49 | XMS REPORT | CCD ---
Author Author NARCISA MUELLER Organization Unknown Address [address], [place] [address] Phone 0 Care Team Providers Care Chucking Machine Set Up Operator Name Role Phone JERMAN GANN Attending Physician [phone] Vital Signs Unknown or Not Available. Allergies Allergy Code Allergy Type Reaction Status No Known Drug Allergies 0 No known drug allergies Active Procedures Unknown or Not Available. History of Immunizations Unknown or Not Available. Problems Unknown or Not Available. Results PT/INR - Collect Date/Time: 11/19/2015 08:20 Test Name Code Test Result Test Units Test Ref Range PT 26.7 Secs L=9.2 H=10.8 INR 2.52 L=0.00 H=4.00 PT/INR - Collect Date/Time: 11/12/2015 08:35 Test Name Code Test Result Test Units Test Ref Range PT 36.0 Secs L=9.2 H=10.8 INR 3.33 L=0.00 H=4.00 Active Medications Unknown or Not Available. Medications Administered During Visit Unknown or Not Available. Encounters Encounter Diagnosis Diagnosis Code Start Date Acute embolism and thrombosis of unspecified deep veins of unspecified lower extremity Y61111 11/12/2015 Social History Smoking Status Code Start Date End Date Unknown if ever smoked [id number] Patient Decision Aids Unknown or Not Available. Discharge Instructions You were admitted to [facility] on 11/12/2015 with a principal diagnosis of Acute embolism and thrombosis of unspecified deep veins of unspecified lower extremity. You were discharged from [facility] on 11/30/2015. Should you have any questions prior to [...]
--- OUTSIDE RECORDS SUMMARY | 2017-02-12 13:49 | XMS REPORT | Referral Summary ---
Author Author [facility] Organization [facility] Address Unknown Phone Unavailable Care Team Providers Care Stand Up Comedian Name Role Phone Shannan Villarreal Primary Care Physician [phone] Encounter VC Date(s): 01/15/16 - 01/15/16 [facility] [address] [place] [address] LEANDER Kang [id number] Discharge Diagnosis: Microscopic hematuria Discharge Diagnosis: Kidney stones Discharge Disposition: 01-Home or Self Care Attending Physician: Donta Rey JR, MD Admitting Physician: Donta Rey JR, MD Vital Signs Most recent to 1 oldest [Reference Range]: Blood Pressure 128/68 mmHg [90-140/60-90 mmHg] (01/15/16 2:09 PM) Problem List Condition Effective Dates Status [...] Daily, # 30 caps, 0 Refill(s), Pharmacy: [id number], 1 caps Oral Daily Start [...] Refill(s) Start Date: 03/11/14 Status: Ordered Results Urinalysis Most recent to 1 oldest [Reference Range]: UA Color Yellow (01/15/16 2:00 PM) UA Appear Sl Cloudy (01/15/16 2:00 PM) UA pH [5.0-8.0] 5.0 (01/15/16 2:00 PM) UA Leuk Est Negative 1 [Negative] *ABN* (01/15/16 2:00 PM) UA Nitrite Negative 2 [Negative] *ABN* (01/15/16 2:00 PM) UA Protein Negative [Negative] (01/15/16 2:00 PM) UA Glucose Negative [Negative] (01/15/16 2:00 PM) UA Ketones Negative [Negative] (01/15/16 2:00 PM) UA Urobilinogen 0.2 mg/dL [<=1.0 mg/dL] (01/15/16 2:00 PM) UA Bili [Negative] Negative (01/15/16 2:00 PM) UA Blood [Negative] Pos 2+ *ABN* (01/15/16 2:00 PM) UA Spec Grav 1.015 [1.003-1.030] (01/15/16 2:00 PM) Type Clean Catch (01/15/16 2:00 PM) UA WBC [0-4] 0-2 (01/15/16 2:00 PM) UA RBC [0-2] 20-50 *ABN* (01/15/16 2:00 PM) Epithelial Cells 0-2 (01/15/16 2:00 PM) 1Result Comment: Corrected result; previously reported as Trace on 01/15/16 at 14:14 by PSTUC 2Result Comment: Corrected result; previously reported as Positive on 01/15/16 at 14:14 by PSTUC Immunizations No data available for this section [...] smoker Assessment and Plan Extracted from: Title: Office Visit Note Author: Donta Rey JR, MD Date: 01/15/16 Assessment/Plan 1.Microscopic hematuria History of kidney stones. I ordered arepeat CAT scan of abdomen and pelvis a week before next visit in 6 months or to come and see me sooner if noticing gross blood in urine. 2.Kidney stones And too small kidney stones left and right kidney. History of bladder cancer Hadpreviously had resection of bladder cancer followed by a series of BCG bladder suspension in the past. Ordered: CT Abdomen Pelvis w/o Contrast Office Visit Level 3 Est 92521 Office Visit Level 3 Est 64136
--- OUTSIDE RECORDS SUMMARY | 2017-02-12 13:50 | XMS REPORT ---
Author Author Nishant Strauss [facility] eClinicalWorks Address Unknown Phone Unavailable Care Team Providers Care Chemical Plant Technical Director Name Role Phone Nishant Strauss CP Unavailable [...] R07.82 Active Problem Atherosclerotic heart disease of [place] coronary artery without angina pectoris I25.10 Active [...] Active Problem Hyperlipidemia, unspecified E78.5 Active Medications No Known Medications Results No Known Results Summary Purpose eClinicalWorks Submission
--- OUTSIDE RECORDS SUMMARY | 2017-02-12 13:50 | XMS REPORT | Referral Summary ---
Author Author [facility] Organization [facility] Address Unknown Phone Unavailable Care Team Providers Care Ore Buyer Name Role Phone Shannan Villarreal Primary Care Physician [phone] Encounter VC Date(s): 07/04/16 - 07/04/16 [facility] [address] [place] [address] LEANDER Kang [id number] Discharge Diagnosis: Kidney stone Discharge Diagnosis: Bladder cancer Discharge Disposition: 01-Home or Self Care Attending Physician: Luis June MD Admitting Physician: Luis June MD Referring Physician: Zulma Villarreal (Nita) Vital Signs Most recent to 1 oldest [Reference Range]: Peripheral Pulse 72 bpm Rate [60-100 bpm] (07/04/16 11:18 AM) Blood Pressure 112/66 mmHg [90-140/60-90 mmHg] (07/04/16 11:18 AM) Problem List Condition Effective Dates Status [...] 0 Refill(s) Start Date: 03/11/14 Status: Ordered FML S.O.P. 0.1% ophthalmic ointment [...] Status: Ordered tamsulosin 0.4 mg oral capsule 0.4 mg 1 caps, Oral, Daily, # 90 caps, 3 Refill(s), Pharmacy: [facility], 1 caps Oral Daily,x90 days Start Date: 07/04/16 Stop Date: 06/29/17 Status: Ordered tamsulosin 0.4 mg oral capsule 0.4 mg 1 caps, Oral, Daily, # 90 caps, 5 Refill(s), [facility], 1 caps Oral Daily,x90 days Start Date: 07/04/16 Stop Date: 12/26/17 Status: Ordered Ventolin HFA puffs, Inhalation, QID, [...] Extracted from: Title: Office Visit Note Author: Luis June MD Date: 07/04/16 Assessment/Plan Bladder cancer We will schedule him for cystoscopy for surveillance Kidney stone We will get x-ray KUB today - We discussed behavorial management of stone disease including increased fluid intake, increased citrate, decreased sodium, decreased animal proteins, decreased oxalate. With regards to his BPH advised him tocontinue tamsulosin and stop finasteride. Ordered: XR Abdomen AP Personal history of kidney stones Ordered: XR Abdomen AP
--- OUTSIDE RECORDS SUMMARY | 2017-02-12 13:50 | XMS REPORT ---
Author Author Nishant Strauss [facility] eClinicalWorks Address Unknown Phone Unavailable Care Team Providers Care Shift Boss Name Role Phone Nishant Strauss CP Unavailable [...] R07.82 Active Problem Atherosclerotic heart disease of [place] coronary artery without angina pectoris I25.10 Active [...]
--- OUTSIDE RECORDS SUMMARY | 2017-02-12 13:50 | XMS REPORT ---
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 385600742409954 Problem Chronic obstructive pulmonary disease, unspecified J44.9 Active 22322874 Problem Hyperlipidemia, unspecified E78.5 Active 04171926 Problem Essential (primary) hypertension I10 Active 03715702 Problem Intercostal pain R07.82 Active 01029590 Problem Acute embolism and thrombosis of unspecified deep veins of right lower extremity I82.401 Active Problem 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 363426582185945 Problem Atherosclerotic heart disease of [place] coronary artery without angina pectoris I25.10 Active 173976872690479 Problem Transient cerebral ischemic attack, unspecified G45.9 Active 162901930 Problem Shortness of breath R06.02 Active 901529948 ALLERGIES Unknown Allergies SOCIAL HISTORY No smoking Hx information available PLAN OF CARE VITAL SIGNS MEDICATIONS Medication Instructions Dosage Frequency Start Date End Date Duration Status Klor-Con M20 20MEQ Orally Twice a day 1 tablet 12h 90 days Active RESULTS No Results PROCEDURES No Known procedures IMMUNIZATIONS No Known Immunizations
--- OUTSIDE RECORDS SUMMARY | 2017-02-12 13:50 | XMS REPORT | Referral Summary ---
Author Author [facility] Organization [facility] Address Unknown Phone Unavailable Care Team Providers Care Face Worker Name Role Phone Shannan Villarreal Primary Care Physician [phone] Encounter VC Date(s): 07/29/15 - 07/29/15 [facility] [address] [place] [id number] Discharge Diagnosis: Renal calculus Discharge Diagnosis: History of kidney disease Discharge Diagnosis: Bilateral lower abdominal pain Discharge Disposition: -Home or Self Care Attending Physician: Anna Rey APRN Admitting Physician: Anna Rey APRN Referring Physician: Zulma Villarreal (Nita) Vital Signs Most recent to 1 oldest [Reference Range]: Temperature Tympanic 36.8 degC [36.6-38.1 degC] (07/29/15 9:55 AM) Peripheral Pulse 87 bpm Rate [60-100 bpm] (07/29/15 9:55 AM) Blood Pressure 140/62 mmHg [90-140/60-90 mmHg] (07/29/15 9:55 AM) SpO2 92 % (07/29/15 9:55 AM) Problem List Condition Effective Dates Status [...] Daily, # 30 caps, 0 Refill(s), Pharmacy: [facility], 1 caps Oral Daily [...] to 1 oldest [Reference Range]: WBC [5.0-10.0 6.9 10*3/uL 10*3/uL] (07/29/15 10:43 AM) RBC [3.70-5.20] 5.12 (07/29/15 10:43 AM) Hgb [12.0-16.0 15.7 gm/dL gm/dL] (07/29/15 10:43 AM) Hct [40.0-54.0 %] 46.3 % (07/29/15 10:43 AM) MCV [80.0-96.0 fL] 90.4 fL (07/29/15 10:43 AM) MCH [26.0-34.0 pg] 30.7 pg (07/29/15 10:43 AM) MCHC [32.0-36.0 33.9 gm/dL gm/dL] (07/29/15 10:43 AM) RDW [0.0-14.5 %] 14.2 % (07/29/15 10:43 AM) Platelet [150-400 238 10*3/uL 10*3/uL] (07/29/15 10:43 AM) MPV [8.8-14.8 fL] 9.9 fL (07/29/15 10:43 AM) Neutrophils [50-70 59 % %] (07/29/15 10:43 AM) Lymphocytes [20-40 20 % %] (07/29/15 10:43 AM) Monocytes [4-8 %] 17 % *HI* (07/29/15 10:43 AM) Eosinophils [0-6 %] 4 % (07/29/15 10:43 AM) Basophils [0-2 %] 1 % (07/29/15 10:43 AM) Neutro Absolute 4.02 10*3 [2.50-7.00 10*3] (07/29/15 10:43 AM) Lymph Absolute 1.38 10*3 [1.00-4.00 10*3] (07/29/15 10:43 AM) [place] Absolute 1.18 10*3 [0.20-0.80 10*3] *HI* (07/29/15 10:43 AM) Eos Absolute 0.25 10*3 [0.00-0.60 10*3] (07/29/15 10:43 AM) Baso Absolute 0.04 [0.00-0.30] (07/29/15 10:43 AM) Urinalysis Most recent to 1 oldest [Reference Range]: UA Color Yellow (07/29/15 11:00 AM) UA Appear Clear (07/29/15 11:00 AM) UA pH [5.0-8.0] 5.5 (07/29/15 11:00 AM) UA Leuk Est Negative [Negative] (07/29/15 11:00 AM) UA Nitrite Negative [Negative] (07/29/15 11:00 AM) UA Protein Negative [Negative] (07/29/15 11:00 AM) UA Glucose Negative [Negative] (07/29/15 11:00 AM) UA Ketones Negative [Negative] (07/29/15 11:00 AM) UA Urobilinogen 0.2 mg/dL (07/29/15 11:00 AM) UA Bili [Negative] Negative (07/29/15 11:00 AM) UA Blood Pos 2+ *ABN* (07/29/15 11:00 AM) UA Spec Grav 1.025 [1.003-1.030] (07/29/15 11:00 AM) Type Clean Catch (07/29/15 11:00 AM) UA WBC [0-4] 0-2 (07/29/15 11:00 AM) UA RBC [0-2] 5-10 *ABN* (07/29/15 11:00 AM) Immunizations No data available for this [...] Smoking Status Former smoker Assessment and Plan No data available for this section
--- OUTSIDE RECORDS SUMMARY | 2017-02-12 13:50 | XMS REPORT | CCD ---
Author Author NARCISA MUELLER Organization Unknown Address [address] [place], [place] [address] Phone 0 Care Team Providers Care Director Of Patient Financial Services Name Role Phone JERMAN GANN Attending Physician [phone] Vital Signs Unknown or Not Available. Allergies Allergy Code Allergy Type Reaction Status No Known Drug Allergies 0 No known drug allergies Active Procedures Unknown or Not Available. History of Immunizations Unknown or Not Available. Problems Unknown or Not Available. Results COMP METABOLIC - Collect Date/Time: 09/16/2016 09:05 Test Name Code Test Result Test Units Test Ref Range GLUCOSE 98 mg/dL L=70 H=110 BUN 21 mg/dL L=7 H=18 CREATININE 1.19 mg/ dL L=0.60 H=1.30 AGE 85 YEARS GFR 58.0 L=60.0 H=120 SODIUM 141 mmol/L L=136 H=145 POTASSIUM 4.1 mmol/ L L=3.5 H=5.1 CHLORIDE 104 mmol/L L=98 H=107 CO2 28 mmol/L L=21 H=32 CALCIUM 9.1 mg/dL L=8.5 H=10.1 AST 24 U/L L=15 H=37 ALT 25 U/L L=12 H=78 ALKALINE PHOS 85 U/ L L=46 H=116 TOTAL PROTEIN 7.6 g/ dL L=6.4 H=8.2 ALBUMIN 3.7 g/dL L=3.4 H=5.0 TOTAL BILI 0.60 mg/ dL L=0.00 H=1.00 HGB A1C - Collect Date/Time: 09/16/2016 09:05 Test Name Code Test Result Test Units Test Ref Range HGB A1C 5.8 % L=4.5 H=6.2 eAG 120 mg/dL Active Medications Unknown or Not Available. Medications Administered During Visit Unknown or Not Available. Encounters Encounter Diagnosis Diagnosis Code Start Date Essential (primary) hypertension I10 Social History Smoking Status Code Start Date End Date Unknown if ever smoked [id number] Patient Decision Aids Unknown or Not Available. Discharge Instructions You were admitted to [facility] on 09/16/2016 08:56 with a principal diagnosis of Essential (primary) hypertension You had the following tests done: COMP METABOLIC HGB A1C You were discharged from [facility] on 09/16/2016 08:56 Should you have any questions prior to [...]
--- OUTSIDE RECORDS SUMMARY | 2017-02-12 13:50 | XMS REPORT | Referral Summary ---
Author Organization Unknown Address Unknown Phone Unavailable Care Team Providers Care Rim Turning Machine Operator Name Role Phone Toi Saunders Primary Care Physician [phone] Encounter VC Date(s): 11/18/14 - 11/18/14 [facility], [place], [facility] [address] [place] [address] Dr Mcdermott, [place] [id number] Discharge Diagnosis: Kidney stones Discharge Disposition: Home or Self Care Attending Physician: Donta Rey JR, MD Admitting Physician: Donta Rey JR, MD Vital Signs Most recent to 1 oldest [Reference Range]: Peripheral Pulse 66 bpm Rate [60-100 bpm] (11/18/14 4:08 PM) Blood Pressure 152/76 mmHg [90-140/60-90 mmHg] *HI* (11/18/14 4:08 PM) Most recent to 1 oldest [Reference Range]: SpO2 95 % (11/18/14 4:08 PM) Problem List Condition Effective Dates Status Health Status Informant Kidney Active stone(Confirmed) Bladder Active cancer(Confirmed) Obesity(Confirmed) Active patient Allergies, Adverse Reactions, Alerts No Known Medication Allergies Medications Advair Diskus 100 mcg-50 mcg inhalation powder puffs, Inhalation, BID, 0 Refill(s) Start Date: 03/11/14 Status: Ordered Aspirin Enteric Coated 81 mg, Oral, 0 Refill(s) Start Date: 03/11/14 Status: Ordered enalapril 2.5 mg oral tablet 1 tabs, Oral, Daily, 0 Refill(s) Start Date: 03/11/14 Status: Ordered famotidine 10 mg oral tablet 1 tabs, Oral, BID, 0 Refill(s) Start Date: 03/11/14 Status: Ordered finasteride 5 mg oral tablet 1 tabs, Oral, Daily, # 90 tabs, 2 Refill(s), Pharmacy: [facility], 1 tabs Oral Daily Start Date: 03/11/14 Status: Ordered FML S.O.P. [...] 0 Refill(s) Start Date: 03/11/14 Status: Ordered [place] 5 mg-325 mg oral tablet 1 tabs, Oral, q6hr, as needed for pain, # 30 tabs, 0 Refill(s) Start Date: 11/14/14 Stop Date: 11/28/14 Status: Ordered tamsulosin 0.4 mg oral capsule 1 caps, Oral, Daily, # 30 caps, 0 Refill(s), Pharmacy: [id number], 1 caps Oral Daily [...] No data available for this section Procedures No data available for this section Social History Social History Type Response Smoking Status Former smoker Assessment and Plan Extracted from: Title: Ambulatory Patient Education Author: Donta Rey JR, MD Date : 11/18/14 Follow Up With: Where: When: Toi Saunders [address] [place] [address] Business (1) Within 3 to 5 days Comments: Follow Up With: Where: When: Donta Rey [address] [place] [address] Drive; [place] [address] Business (1) In 6 months 05/18/2015 Comments:
--- OUTSIDE RECORDS SUMMARY | 2017-02-12 13:50 | XMS REPORT ---
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 Problem Transient cerebral ischemic attack, unspecified G45.9 Active Problem Intercostal pain R07.82 Active Problem Atherosclerotic heart disease of [place] coronary artery without angina pectoris I25.10 Active Problem Presence of cardiac pacemaker Z95.0 Active Problem Shortness of breath R06.02 Active Problem 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 Assessment Presence of cardiac pacemaker Z95.0 Active Problem S/P Pacemaker Placement - Dual V45.01 Active Assessment 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 Assessment Old myocardial infarction I25.2 Active Problem COPD 496 Active Problem CAD 414.01 Active Problem Hypertension 401.9 Active Problem Chronic obstructive pulmonary disease, unspecified J44.9 Active Problem CHF, Combined Systolic & Diastolic Heart Failure, Chronic 428.42 Active Problem Hyperlipidemia, unspecified E78.5 Active Medications Medication Code System Code Instructions Start Date End Date Status Dosage Lisinopril [facility] 18474346504 10MG Orally Once a day 1 tablet Nitrostat [facility] [address]-10 0.4 MG Sublingual every 0 hrs 1 tablet under the tongue and allow to dissolve as needed Finasteride [facility] [address]-98 5 MG Orally Once a day 1 tablet Geritol Complete [facility] [address] Orally qd 1 tablet Klor-Con M10 [facility] [address]-75 10 MEQ Orally four times a day 1 tablet Furosemide [facility] [address]-94 20 MG Orally Once a day 1 tablet Atorvastatin Calcium [facility] [address]-54 10 MG Orally Once a day 1 tablet Famotidine [facility] [address]-69 20 MG Orally Twice a day 1 tablet Oxygen NDC 0 not defined Brovana [facility] [address]-09 15 MCG/2ML Inhalation bid 2 ml Coumadin [facility] [address]-94 Orally as directed 1 tablet Enalapril Maleate [facility] [address]-84 10 MG Orally Twice a day 1 tablet Procedures Procedure Coding System Code Date Office Visit, Est Pt., Level 3 CPT-4 66610 Jun 10, 2016 Results No Known Results Summary Purpose eClinicalWorks Submission
--- OUTSIDE RECORDS SUMMARY | 2017-02-12 13:50 | XMS REPORT | Referral Summary ---
Author Author [facility] Organization [facility] Address Unknown Phone Unavailable Care Team Providers Care Painter And Paperhanger Apprentice Name Role Phone Shannan Villarreal Primary Care Physician [phone] Encounter VC Date(s): 07/30/15 - 07/30/15 [facility] [address] [place] [address] LEANDER Kang [id number] Discharge Diagnosis: Recent cerebrovascular accident Discharge Diagnosis: [...] Daily, # 30 caps, 0 Refill(s), Pharmacy: [facility], 1 caps Oral Daily [...] When: Zulma (Shruti) Phil [address] [place] [address] Business (1) Within 3 to 5 days Comments: Follow Up With: Where: When: Donta Rey [address] [place] [address] Drive; [address] [place], [place] [id number] Business (1) In 6 weeks 09/10/2015 Comments: [...] bladder Ordered: Office Visit Level 3 Est 55266 Urinalysis with Culture if Indicated
--- OUTSIDE RECORDS SUMMARY | 2017-02-12 13:51 | XMS REPORT | CCD ---
Author Author NARCISA MUELLER Organization Unknown Address [address] [place], [place] [address] Phone 0 Care Team Providers Care Supervisor Cigar Making Machine Name Role Phone JERMAN GANN Attending Physician [phone] Vital Signs Unknown or Not Available. Allergies [...] Encounters Encounter Diagnosis Diagnosis Code Start Date Sleep apnea, unspecified G4730 2015 Social History Smoking Status Code Start Date End Date Unknown if ever smoked [id number] Patient Decision Aids Unknown or Not Available. Discharge Instructions You were admitted to [facility] on 05/09/2016 19:30 with a principal diagnosis of Sleep apnea, unspecified You were discharged from [facility] on 05/10/2016 05:15 Should you have any questions prior to discharge, please contact a member of your healthcare team. If you have left the hospital and have any questions, please contact your primary care physician. Chief Complaint and Reason For Visit Chief Complaint Date of Onset SS Function Status Unknown or Not Available. Plan of Care Unknown or Not Available. Referral/Transition of Care Unknown or Not Available.
--- OUTSIDE RECORDS SUMMARY | 2017-02-12 13:51 | XMS REPORT ---
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 279282699578527 Problem Chronic obstructive pulmonary disease, unspecified J44.9 Active 51127952 Problem Hyperlipidemia, unspecified E78.5 Active 91110473 Problem Essential (primary) hypertension I10 Active 90685259 Problem Intercostal pain R07.82 Active 62720940 Problem Acute embolism and thrombosis of unspecified deep veins of right lower extremity I82.401 Active Problem 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 302274137134677 Problem Atherosclerotic heart disease of [place] coronary artery without angina pectoris I25.10 Active 214543125017568 Problem Transient cerebral ischemic attack, unspecified G45.9 Active 282913839 Problem Shortness of breath R06.02 Active 721033086 ALLERGIES Unknown Allergies SOCIAL HISTORY No smoking Hx information available PLAN OF CARE VITAL SIGNS MEDICATIONS Medication Instructions Dosage Frequency Start Date End Date Duration Status Klor-Con M20 20MEQ Orally Twice a day 1 tablet 12h 30 Active RESULTS No Results PROCEDURES No Known procedures IMMUNIZATIONS No Known Immunizations
--- OUTSIDE RECORDS SUMMARY | 2017-02-12 13:51 | XMS REPORT ---
Author Author Nishant Strauss [facility] eClinicalWorks Address Unknown Phone Unavailable Care Team Providers Care Access Service Representative Name Role Phone Nishant Strauss CP Unavailable Allergies, Adverse Reactions, Alerts Substance Reaction Event Type Niacin burning/itch Non Drug Allergy Problems Problem Type Condition Code Onset Dates Condition Status Problem COPD 496 Active Assessment Transient cerebral ischemic attack, unspecified G45.9 Active Problem CAD 414.01 Active Assessment Chronic obstructive pulmonary disease, unspecified J44.9 Active Problem Chronic obstructive pulmonary disease, unspecified J44.9 Active Problem Essential (primary) hypertension I10 Active Problem Hyperlipidemia, unspecified E78.5 Active Problem Shortness of breath R06.02 Active Problem 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 Assessment Old myocardial infarction I25.2 Active Assessment Essential (primary) hypertension I10 Active Problem Transient cerebral ischemic attack, unspecified G45.9 Active Assessment Hyperlipidemia, unspecified E78.5 Active Problem 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 Problem Old myocardial infarction I25.2 Active Problem Atherosclerotic heart disease of [place] coronary artery without angina pectoris I25.10 Active Problem Presence of cardiac pacemaker Z95.0 Active Assessment Atherosclerotic heart disease of [place] coronary artery without angina pectoris I25.10 Active Assessment 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 Assessment 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 Assessment Presence of cardiac pacemaker Z95.0 Active Problem Hypertension 401.9 Active Problem CHF, Combined Systolic & Diastolic Heart Failure, Chronic 428.42 Active Assessment Shortness of breath R06.02 Active Problem S/P Pacemaker Placement - Dual V45.01 Active Medications Medication Code System Code Instructions Start Date End Date Status Dosage Atorvastatin Calcium [facility] [address]-76 10 MG Orally Once a day 1 tablet Lisinopril [facility] 05905630488 10MG Orally Once a day 1 tablet Famotidine [facility] [address]-19 20 MG Orally Twice a day 1 tablet Furosemide [facility] 20549437134 20 MG Orally Once a day 1 tablet Brovana [facility] [address]-98 15 MCG/2ML Inhalation bid 2 ml Oxygen NDC 0 not defined Nitrostat [facility] [address]-28 0.4 MG Sublingual every 0 hrs 1 tablet under the tongue and allow to dissolve as needed Geritol Complete [facility] [address]-30 Orally qd 1 tablet Finasteride [facility] [address]-67 5 MG Orally Once a day 1 tablet Klor-Con M10 [facility] [address]-48 10 MEQ Orally qid 1 tablet Augmentin [facility] [address]-93 875-125 MG Orally Twice a day 1 tablet Coumadin [facility] [address]-45 Orally as directed 1 tablet Procedures Procedure Coding System Code Date Office Visit, Est Pt., Level 4 CPT-4 00786 Oct 19, 2015 CHEST X-RAY CPT-4 49619 Oct 19, 2015 Vital Signs Date/Time: Oct 19, 2015 BMI 32.22 Index Weight 224.6 lbs Height 70 in Cardiac Monitoring Heart Rate 89 /min Oximetry 92% % Blood Pressure Diastolic 68 mm Hg Blood Pressure Systolic 112 mm Hg Results Name Result Date Reference Range Unit Abnormality Flag Chest x-ray PA and Lateral Summary Purpose eClinicalWorks Submission
--- OUTSIDE RECORDS SUMMARY | 2017-02-12 13:51 | XMS REPORT ---
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 Problem Transient cerebral ischemic attack, unspecified G45.9 Active Problem 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
--- OUTSIDE RECORDS SUMMARY | 2017-02-12 13:51 | XMS REPORT | CCD ---
Author Author NARCISA MUELLER Organization Unknown Address [address], [place] [address] Phone 0 Care Team Providers Care Office Equipment Technician Name Role Phone JERMAN GANN Attending Physician [phone] Alice KILPATRICK Rounding Physician [phone] Vital Signs Unknown or Not Available. Allergies Allergy Code Allergy Type Reaction Status No Known Drug Allergies 0 No known drug allergies Active Procedures Unknown or Not Available. History of Immunizations Unknown or Not Available. Problems Unknown or Not Available. Results COMP METABOLIC - Collect Date/Time: 11/18/2016 08:20 Test Name Code Test Result Test Units Test Ref Range GLUCOSE 99 mg/dL L=70 H=110 BUN 17 mg/dL L=7 H=18 CREATININE 1.23 mg/ dL L=0.60 H=1.30 AGE 85 YEARS GFR 55.8 L=60.0 H=120 SODIUM 141 mmol/L L=136 H=145 POTASSIUM 3.9 mmol/ L L=3.5 H=5.1 CHLORIDE 104 mmol/L L=98 H=107 CO2 29 mmol/L L=21 H=32 CALCIUM 9.0 mg/dL L=8.5 H=10.1 AST 20 U/L L=15 H=37 ALT 26 U/L L=12 H=78 ALKALINE PHOS 87 U/ L L=46 H=116 TOTAL PROTEIN 7.6 g/ dL L=6.4 H=8.2 ALBUMIN 3.5 g/dL L=3.4 H=5.0 TOTAL BILI 0.50 mg/ dL L=0.00 H=1.00 HGB A1C - Collect Date/Time: 11/18/2016 08:20 Test Name Code Test Result Test Units Test Ref Range HGB A1C 6.0 % L=4.5 H=6.2 eAG 126 mg/dL LIPID PANEL - Collect Date/Time: 11/18/2016 08:20 Test Name Code Test Result Test Units Test Ref Range CHOLESTEROL 128 mg/ dL L=0 H=200 TRIGLYCERIDES 104 mg /dL L=30 H=150 HDL 60 mg/dL L=40 H=60 LDL, CALC 47 mg/dL L=0 H=100 VLDL 21 mg/dL L=0 H=40 CHOL/HDL RISK 2.1 RATIO L=0.0 H=5.0 PT FASTING: YES N/A PSA - SCREENING - Collect Date/Time: 11/18/2016 08:20 Test Name Code Test Result Test Units Test Ref Range PSA SCREEN 0.57 ng/ mL L=0.00 H=4.00 THYROXINE (T4) FREE - Collect Date/Time: 11/18/2016 08:20 Test Name Code Test Result Test Units Test Ref Range FT4 1.06 ng/dL L=0.76 H=1.46 TSH - Collect Date/Time: 11/18/2016 08:20 Test Name Code Test Result Test Units Test Ref Range TSH 4.26 uIU/mL L=0.36 H=3.74 Active Medications Unknown or Not Available. Medications Administered During Visit Unknown or Not Available. Encounters Unknown or Not Available. Social History Smoking Status Code Start Date End Date Unknown if ever smoked [id number] Patient Decision Aids Unknown or Not Available. Discharge Instructions You were admitted to [facility] on 11/18/2016 08:11 You had the following tests done: COMP METABOLIC HGB A1C LIPID PANEL PSA - SCREENING THYROXINE (T4) FREE TSH You were discharged from [facility] on 11/18/2016 08:11 Should you have any questions prior to [...]
--- OUTSIDE RECORDS SUMMARY | 2017-02-12 13:51 | XMS REPORT ---
Author Nishant Santa [facility] eClinicalWorks Address Unknown Phone Unavailable Care Team Providers Care Racker Octave Board Name Role Phone Nishant Strauss CP Unavailable [...] of right lower extremity I82.401 Active Assessment Essential (primary) hypertension I10 Active Problem Transient cerebral ischemic attack, unspecified G45.9 Active Assessment Hyperlipidemia, unspecified E78.5 Active Problem Intercostal pain R07.82 Active Problem Atherosclerotic heart disease of [place] coronary artery without angina pectoris I25.10 Active Problem Presence of cardiac pacemaker Z95.0 Active Problem Shortness of breath R06.02 Active Problem 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 Assessment Old myocardial infarction I25.2 Active Problem S/P Pacemaker Placement - Dual V45.01 Active Assessment 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 Assessment Presence of cardiac pacemaker Z95.0 Active Problem COPD 496 Active Problem CAD 414.01 Active Problem Hypertension 401.9 Active Problem Chronic obstructive pulmonary disease, unspecified J44.9 Active Problem CHF, Combined Systolic & Diastolic Heart Failure, Chronic 428.42 Active Problem Hyperlipidemia, unspecified E78.5 Active Medications Medication Code System Code Instructions Start Date End Date Status Dosage Furosemide [facility] [address]-19 20 MG Orally Once a day 1 tablet Lisinopril [facility] 77921240202 10MG Orally Once a day 1 tablet Finasteride [facility] [address]-81 5 MG Orally Once a day 1 tablet Oxygen NDC 0 not defined Klor-Con M10 [facility] [address]-16 10 MEQ Orally four times a day 1 tablet Enalapril Maleate [facility] [address]-30 10 MG Orally Twice a day 1 tablet Brovana [facility] [address]-30 15 MCG/2ML Inhalation bid 2 ml Famotidine [facility] [address]-86 20 MG Orally Twice a day 1 tablet Coumadin [facility] [address]-99 Orally as directed 1 tablet Aspirin Adult Low Dose [facility] [address]-21 81 MG Orally Once a day 1 tablet Geritol Complete [facility] [address] Orally qd 1 tablet Nitrostat [facility] [address]-94 0.4 MG Sublingual every 0 hrs 1 tablet under the tongue and allow to dissolve as needed Vitamin A [facility] [address]-65 1000 mg Orally Once a day 2 tablets Procedures Procedure Coding System Code Date Office Visit, Est Pt., Level 3 CPT-4 15520 Jun 10, 2016 Ofc Interrogation PM, Device Company CPT-4 48664 Jun 10, 2016 Vital Signs Date/Time: Jun 10, 2016 BMI 31.28 Index Weight 218 lbs Height 70 in Cardiac Monitoring Heart Rate 72 /min Oximetry 94 % Blood Pressure Diastolic 80 mm Hg Blood Pressure Systolic 128 mm Hg Results No Known Results Summary Purpose eClinicalWorks Submission
--- OUTSIDE RECORDS SUMMARY | 2017-02-12 13:51 | XMS REPORT ---
Author Author Nishant Strauss [facility] [place] [facility] eClinicalWorks Address Unknown Phone Unavailable Care Team Providers Care Cigar Head Perforator Name Role Phone Nishant Strauss CP Unavailable Allergies, Adverse Reactions, Alerts Substance Reaction Event Type Niacin burning/itch Non Drug Allergy Problems Problem Type Condition Code Onset Dates Condition Status Problem COPD 496 Active Problem Chronic obstructive pulmonary disease, unspecified J44.9 Active Problem CAD 414.01 Active Problem Atherosclerotic heart disease of [place] coronary artery without angina pectoris I25.10 Active Assessment Chronic obstructive pulmonary disease, unspecified J44.9 Active Problem Presence of cardiac pacemaker Z95.0 Active Assessment Transient cerebral ischemic attack, unspecified G45.9 Active Problem 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 Problem Essential (primary) hypertension I10 Active Problem Hyperlipidemia, unspecified E78.5 Active Problem 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 Problem Old myocardial infarction I25.2 Active Assessment Old myocardial infarction I25.2 Active Assessment 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 Assessment Hyperlipidemia, unspecified E78.5 Active Assessment Essential (primary) hypertension I10 Active Assessment 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 Problem S/P Pacemaker Placement - Dual V45.01 Active Assessment Presence of cardiac pacemaker Z95.0 Active Problem Hypertension 401.9 Active Assessment Atherosclerotic heart disease of [place] coronary artery without angina pectoris I25.10 Active Problem CHF, Combined Systolic & Diastolic Heart Failure, Chronic 428.42 Active Medications Medication Code System Code Instructions Start Date End Date Status Dosage Nitrostat [facility] [address]-11 0.4 MG Sublingual every 0 hrs 1 tablet under the tongue and allow to dissolve as needed Furosemide [facility] 30812416375 20 MG Orally Once a day 1 tablet Geritol Complete [facility] [address]-46 Orally qd 1 tablet Brovana [facility] [address]-76 15 MCG/2ML Inhalation bid 2 ml Klor-Con M10 [facility] [address]-51 10 MEQ Orally qid 1 tablet Lisinopril [facility] [address]-86 10 MG Orally Once a day 1 tablet Coumadin [facility] [address]-62 0 mg Orally as directed 1 tablet Augmentin [facility] [address]-65 875-125 MG Orally Twice a day 1 tablet Finasteride [facility] [address]-61 5 MG Orally Once a day 1 tablet Atorvastatin Calcium [facility] [address]-33 10 MG Orally Once a day 1 tablet Famotidine [facility] [address]-52 20 MG Orally Twice a day 1 tablet Procedures Procedure Coding System Code Date Ofc Program PM Tammy, Staff CPT-4 48008 Aug 14, 2015 Office Visit, Est Pt., Level 3 CPT-4 82574 Aug 14, 2015 ELECTROCARDIOGRAM, COMPLETE CPT-4 63165 Aug 14, 2015 Vital Signs Date/Time: Aug 14, 2015 BMI 31.88 Index Weight 222.2 lbs Height 70 in Cardiac Monitoring Heart Rate 87 /min Oximetry 90 % Blood Pressure Diastolic 60 sitting mm Hg Blood Pressure Systolic 122 mm Hg Results Name Result Date Reference Range Unit Abnormality Flag Ofc Program PM Tammy, Staff Summary Purpose eClinicalWorks Submission
--- OUTSIDE RECORDS SUMMARY | 2017-02-12 13:51 | XMS REPORT | Referral Summary ---
Author Author [facility] Organization [facility] Address Unknown Phone Unavailable Care Team Providers Care Icing Maker Name Role Phone Shannan Villarreal Primary Care Physician [phone] Encounter VC Date(s): 04/09/15 - 04/09/15 [facility] [address] [place] [address] LEANDER Kang [id number] Discharge Diagnosis: BPH Discharge Diagnosis: History of [...] Daily, # 30 caps, 0 Refill(s), Pharmacy: [facility], 1 caps Oral Daily [...] 1.06 10*3 [1.00-4.00 10*3] (04/09/15 8:55 AM) Powell Absolute 0.89 10*3 [0.20-0.80 10*3] *HI* (04/09/15 [...] Where: When: Toi Saunders [address] [place] [address] Business (1) Within 3 to 5 days Comments: Follow Up With: Where: When: Donta Rey [address] [place] [address] Drive; [address] [place], [place] [phone] Business (1) In 1 year 04/09/2016 Comments: [...] patient. Ordered: Office Visit Level 4 Est 86513 Prostate Specific Antigen History of bladder cancer Ordered: Office Visit Level 4 Est 72249 History of kidney stones Ordered: Office Visit Level 4 Est 69513 Orders: finasteride, See Instructions, TAKE ONE TABLET BY MOUTH ONCE DAILY, # 90 tabs, 3 Refill(s), TAKE ONE TABLET BY MOUTH ONCE DAILY
--- OUTSIDE RECORDS SUMMARY | 2017-02-12 13:51 | XMS REPORT | Referral Summary ---
Author Author [facility] Organization [facility] Address Unknown Phone Unavailable Care Team Providers Care Assembler Semiconductor Name Role Phone Shannan Villarreal Primary Care Physician [phone] Encounter VC Date(s): 07/29/15 - 07/29/15 [facility] [address] LE[place]ER Kang [id number] Discharge Diagnosis: Renal calculus Discharge Diagnosis: History [...] Daily, # 30 caps, 0 Refill(s), Pharmacy: [facility], 1 caps Oral Daily Start [...] 1.38 10*3 [1.00-4.00 10*3] (07/29/15 10:43 AM) Bacon Absolute 1.18 10*3 [0.20-0.80 10*3] *HI* (07/29/15 [...]
--- OUTSIDE RECORDS SUMMARY | 2017-02-12 13:51 | XMS REPORT | CCD ---
Author Author NARCISA MUELLER Organization Unknown Address [address] [place], [place] [id number] Phone 0 Care Team Providers Care Stock Clerk Name Role Phone JERMAN GANN Attending Physician [phone] Vital Signs Unknown or Not Available. Allergies Allergy Code Allergy Type Reaction Status No Known Drug Allergies 0 No known drug allergies Active Procedures Unknown or Not Available. History of Immunizations Unknown or Not Available. Problems Unknown or Not Available. Results PT/INR - Collect Date/Time: 01/06/2016 10:40 Test Name Code Test Result Test Units Test Ref Range PT 22.6 Secs L=9.2 H=10.8 INR 2.15 L=0.00 H=4.00 Active Medications Unknown or Not Available. Medications Administered During Visit Unknown or Not Available. Encounters Encounter Diagnosis Diagnosis Code Start Date Acute embolism and thrombosis of unspecified deep veins of unspecified lower extremity [id number] 01/06/2016 Social History Smoking Status Code Start Date End Date Unknown if ever smoked [id number] Patient Decision Aids Unknown or Not Available. Discharge Instructions You were admitted to [facility] on 01/06/2016 10:36 with a principal diagnosis of Acute embolism and thombos unsp deep vn unsp lower extr You had the following tests done: PT/ INR You were discharged from [facility] on 01/06/2016 10:36 Should you have any questions prior to [...]
--- OUTSIDE RECORDS SUMMARY | 2017-02-12 13:51 | XMS REPORT | Referral Summary ---
Author Author [facility] Organization [facility] Address Unknown Phone Unavailable Care Team Providers Care Iron Erector Name Role Phone Shannan Villarreal Primary Care Physician [phone] Encounter VC Date(s): 04/09/15 - 04/09/15 [facility] [address] [place] [address] LEANDER Kang [id number] Discharge Diagnosis: BPH Discharge Diagnosis: History of bladder cancer Discharge Diagnosis: History of kidney stones Discharge Disposition: 01-Home or Self Care [...] Daily, # 30 caps, 0 Refill(s), Pharmacy: [facility], 1 caps Oral Daily [...] 1.06 10*3 [1.00-4.00 10*3] (04/09/15 8:55 AM) Woods Absolute 0.89 10*3 [0.20-0.80 10*3] *HI* (04/09/15 [...] Where: When: Toi Saunders [address] [place] [address] Business (1) Within 3 to 5 days Comments: Follow Up With: Where: When: Donta Rey [address] [place] [address] Drive; [address] [place], [place] [phone] Business (1) In 1 year 04/09/2016 Comments: [...] patient. Ordered: Office Visit Level 4 Est 86181 Prostate Specific Antigen History of bladder cancer Ordered: Office Visit Level 4 Est 20566 History of kidney stones Ordered: Office Visit Level 4 Est 42851 Orders: finasteride, See Instructions, TAKE ONE TABLET BY MOUTH ONCE DAILY, # 90 tabs, 3 Refill(s), TAKE ONE TABLET BY MOUTH ONCE DAILY
--- OUTSIDE RECORDS SUMMARY | 2017-02-12 13:51 | XMS REPORT | Continuity of Care Document ---
Author Author [facility] Organization [facility] Address Unknown Phone Unavailable Allergies Active Description Code Type Severity Reaction Onset Reported/Identified Relationship to Patient Clinical Status Yes niacin niacin Drug Allergy Unknown N/A 01/18/2003 Yes niacin niacin Drug Allergy Unknown N/A 01/18/2003 Yes NIACIN NIACIN Drug Allergy Unknown BURNING AND ITCHING 05/17/2008 Yes NO KNOW CONTRAST MEDIA ALLERGY NO KNOW CONTRAST MEDIA ALLERGY Drug Allergy Unknown N/A 2007 Yes No Known Food Allergies No Known Food Allergies Drug Allergy Unknown N/A 05/17/2008 Yes NO KNOWN LATEX ALLERGY/SENSITI NO KNOWN LATEX ALLERGY/SENSITI Drug Allergy Unknown N/A 2007 Yes No Known Other Allergies No Known Other Allergies Drug Allergy Unknown N/A 05/17/2008 Yes NIACIN NIACIN Drug Allergy Unknown BURNING AND ITCHING 05/17/2008 Yes NO KNOW CONTRAST MEDIA ALLERGY NO KNOW CONTRAST MEDIA ALLERGY Drug Allergy Unknown N/A 2007 Yes No Known Food Allergies No Known Food Allergies Drug Allergy Unknown N/A 05/17/2008 Yes NO KNOWN LATEX ALLERGY/SENSITI NO KNOWN LATEX ALLERGY/SENSITI Drug Allergy Unknown N/A 2007 Yes No Known Other Allergies No Known Other Allergies Drug Allergy Unknown N/A 05/17/2008 Yes No Known Medication Allergies NKMA N/A N/A 03/11/2014 Yes No Known Allergies No Known Allergies Drug Allergy Unknown N/A 12/19/2016 Medications Problems Date Dx Coded Attending Type Code Diagnosis Diagnosed By 02/19/2013 Diana Mahan MD Final 786.05 SHORTNESS OF BREATH 02/19/2013 Diana Mahan MD Final 794.2 ABN PULMON FUNCT STUDY 02/19/2013 Diana Mahan MD Admitting 786.05 SHORTNESS OF BREATH Procedures Results Test Result Range CBC W/DIFF - 05/26/12 21:35 EOSINOPHIL # 0.1 k/cumm 0.1-0.5 EOSINOPHIL % 2 % 2-4 GRANULOCYTE # 4.9 k/cumm 2.0-9.0 GRANULOCYTE % 67 % 50-75 LYMPHOCYTE # 0.9 k/cumm 1.0-4.0 LYMPHOCYTE % 12 % 20-30 MEAN CELL HGB 31.1 pg 27.0-33.0 MEAN CELL HGB CONCENTRATION 34.1 g/dl 32.0-36.0 MEAN CELL VOLUME 91.2 fl 80.0-100.0 MONOCYTE # 1.4 k/cumm 0.1-1.0 MONOCYTE % 19 % 4-6 RED BLOOD CELL 5.34 m/cumm 4.00-6.00 RED CELL DISTRIBUTION WIDTH 13.5 % 11.0- 15.6 WHITE BLOOD CELL 7.4 k/cumm 5.0-10.0 HEMOGLOBIN 16.6 gm/dL 14.0-18.0 HEMATOCRIT 48.7 % 40.0-54.0 PLATELET COUNT 240 k/cumm 150-450 TROPONIN I BEDSIDE - 05/26/12 21:40 METHOD Bedside TROPONIN I < 0.04 ng/mL < 0.11 CHEM/HEM PROFILE-BEDSIDE - 05/26/12 21:41 POTASSIUM 3.7 mmol/L 3.5-5.3 METHOD Bedside ANION GAP 16 mmol/L 10-20 METHOD Bedside GLUCOSE 109 mg/dL 70-99 BLOOD UREA NITROGEN 17 mg/dL 7-20 CREATININE 1.1 mg/dL 0.8-1.3 HEMOGLOBIN 16.7 gm/dL 14.0-18.0 HEMATOCRIT 49.0 % 40.0-54.0 SODIUM 137 mmol/L 135-148 CHLORIDE 99 mmol/L 98-110 CARBON DIOXIDE 26 mmol/L 21-32 CALCIUM IONIZED 4.7 mg/dL 4.5-5.3 PROTHROMBIN TIME WITH INR - 12/19/16 12:45 INTERNATIONAL NORMAL RATIO 1.1 0.9-1.1 PROTHROMBIN TIME 13.3 sec 10.0-12.9 METABOLIC PANEL, BASIC - 12/19/16 12:45 POTASSIUM 3.9 mmol/L 3.5-5.3 EST GFR (MDRD) 52 mL/min > 59 ANION GAP 9 mmol/L 5-15 GLUCOSE 102 mg/dL 70-99 CALCIUM 9.4 mg/dL 8.5-10.1 BLOOD UREA NITROGEN 25 mg/dL 7-20 CREATININE 1.3 mg/dL 0.7-1.3 SODIUM 140 mmol/L 135-148 CHLORIDE 105 mmol/L 98-110 CARBON DIOXIDE 26 mmol/L 21-32 Encounters ACCT No. Visit Date/Time Discharge Status Pt. Type Provider Facility Loc./Unit Complaint [id number] 02/19/2013 13:22:00 2012 23:59:59 CLS Outpatient Kalli HARGROVE, Diana William [facility]
--- OUTSIDE RECORDS SUMMARY | 2017-02-12 13:51 | XMS REPORT | CCD ---
Author Author TAHIRA CANTU Organization Unknown Address [address] [place], [place] [phone] Phone 0 Care Team Providers Care Chief Petroleum Engineer Name Role Phone JERMAN GANN Attending Physician [phone] Alice KILPATRICK Rounding Physician [phone] Vital Signs Unknown. Allergies Allergy Code Allergy Type Reaction Status No Known Drug Allergies 0 No known drug allergies Active Procedures Unknown. History of Immunizations Unknown. Problems Unknown. Results PSA - SCREENING Test Name Code Test Result Test Units Test Date/Time PSA SCREEN 0.1800 ng /mL 09/13/2013 08:05 MICROALBUMIN/CREATININE RATIO Test Name Code Test Result Test Units Test Date/Time MICROALBUMIN 1.8000 mg/dL 09/13/2013 08:10 CREAT, URINE 189.8000 mg/dL 09/13/2013 08:10 MICROALB/CREAT 9.5000 ug/mg 09/13/2013 08:10 LIPID PANEL Test Name Code Test Result Test Units Test Date/Time CHOLESTEROL 149.0000 mg/dL 09/13/2013 08:05 TRIGLYCERIDES 118.0000 mg/dL 09/13/2013 08:05 HDL 51.0000 mg/dL 09/13/2013 08:05 LDL, CALC 74.0000 mg /dL 09/13/2013 08:05 VLDL 24.0000 mg/dL 09/13/2013 08:05 CHOL/HDL RISK 2.9000 RATIO 09/13/2013 08:05 PT FASTING: YES N/A 09/13/2013 08:05 UA AUTO W/ MICRO Test Name Code Test Result Test Units Test Date/Time COLOR Yellow N/A 09/13/2013 08:10 APPEARANCE Clear N/ A 09/13/2013 08:10 GLUCOSE Negative N/ A 09/13/2013 08:10 BILIRUBIN Negative N /A 09/13/2013 08:10 KETONE Negative N/A 09/13/2013 08:10 SPEC GRAVITY 1.020 N /A 09/13/2013 08:10 BLOOD Negative N/A 09/13/2013 08:10 PROTEIN Negative N/ A 09/13/2013 08:10 PH 7.0 N/A 09/13/2013 08:10 UROBILINOGEN 0.2 N/ A 09/13/2013 08:10 NITRITE Negative N/ A 09/13/2013 08:10 LEUKOCYTES Negative N/A 09/13/2013 08:10 MICRO RBC None Seen N/A 09/13/2013 08:10 MICRO WBC 0-2 N/A 09/13/2013 08:10 BACTERIA Trace N/A 09/13/2013 08:10 EPI CELLS 0-5 N/A 09/13/2013 08:10 MUCUS Trace N/A 09/13/2013 08:10 AMORPHOUS None Seen N/A 09/13/2013 08:10 YEAST None Seen N/A 09/13/2013 08:10 CRYSTALS None Seen N /A 09/13/2013 08:10 CAST None Seen N/A 09/13/2013 08:10 URINE CULTURE? NO N/ A 09/13/2013 08:10 CBC W/ DIFF Test Name Code Test Result Test Units Test Date/Time WBC 6.1000 x10^3 09/13/2013 08:05 RBC 5.3100 x10^6 09/13/2013 08:05 HEMOGLOBIN 16.9000 g /dL 09/13/2013 08:05 HEMATOCRIT 50.3000 % 09/13/2013 08:05 MCV 95.0000 fL 09/13/2013 08:05 MCH 31.9000 pg 09/13/2013 08:05 MCHC 33.7000 g/dL 09/13/2013 08:05 RDW 13.6000 % 09/13/2013 08:05 PLATELETS 218.0000 x10^3 09/13/2013 08:05 MPV 8.4000 fL 09/13/2013 08:05 NEUTROPHILS 64.4000 % 09/13/2013 08:05 LYMPHOCYTES 21.6000 % 09/13/2013 08:05 MONOCYTES 10.7000 % 09/13/2013 08:05 EOSINOPHILS 3.0000 % 09/13/2013 08:05 BASOPHILS 0.3000 % 09/13/2013 08:05 REFLEX MAN DIFF NO N /A 09/13/2013 08:05 HGB A1C Test Name Code Test Result Test Units Test Date/Time HGB A1C 5.6000 % 09/13/2013 08:05 eAG 114.0000 mg/dL 09/13/2013 08:05 COMP METABOLIC Test Name Code Test Result Test Units Test Date/Time GLUCOSE 99.0000 mg/ dL 09/13/2013 08:05 BUN 17.0000 mg/dL 09/13/2013 08:05 CREATININE 1.3000 mg /dL 09/13/2013 08:05 AGE 82.0000 YEARS 09/13/2013 08:05 GFR 56.0000 09/13/2013 08:05 SODIUM 140.0000 mmol /L 09/13/2013 08:05 POTASSIUM 4.1000 mmol/L 09/13/2013 08:05 CHLORIDE 103.0000 mmol/L 09/13/2013 08:05 CO2 30.0000 mmol/L 09/13/2013 08:05 CALCIUM 9.1000 mg/ dL 09/13/2013 08:05 AST 18.0000 U/L 09/13/2013 08:05 ALT 25.0000 U/L 09/13/2013 08:05 ALKALINE PHOS 105.0000 U/L 09/13/2013 08:05 TOTAL PROTEIN 7.5000 g/dL 09/13/2013 08:05 ALBUMIN 3.8000 g/dL 09/13/2013 08:05 TOTAL BILI 0.6000 mg /dL 09/13/2013 08:05 Medications Unknown. Medications Administered Unknown. Encounters Unknown. Social History Smoking Status Code Start Date End Date Unknown if ever smoked [id number] Patient Decision Aids Unknown. Instructions You were admitted to [facility] on 09/13/2013. You had the following tests done: WBC RBC HEMOGLOBIN HEMATOCRIT MCV MCH MCHC RDW PLATELETS MPV NEUTROPHILS LYMPHOCYTES MONOCYTES EOSINOPHILS BASOPHILS REFLEX MAN DIFF GLUCOSE BUN CREATININE AGE GFR SODIUM POTASSIUM CHLORIDE CO2 CALCIUM AST ALT ALKALINE PHOS TOTAL PROTEIN ALBUMIN TOTAL BILI PT FASTING: CHOLESTEROL TRIGLYCERIDES HDL LDL, CALC VLDL CHOL/HDL RISK HGB A1C eAG PSA SCREEN COLOR APPEARANCE GLUCOSE BILIRUBIN KETONE SPEC GRAVITY BLOOD PROTEIN PH UROBILINOGEN NITRITE LEUKOCYTES MICRO RBC MICRO WBC BACTERIA EPI CELLS MUCUS AMORPHOUS YEAST CRYSTALS CAST URINE CULTURE? MICROALBUMIN CREAT, URINE MICROALB/CREAT You were discharged from [facility] on 09/13/2013. Should you have any questions prior to discharge, please contact a member of your healthcare team. If you have left the hospital and have any questions, please contact your primary care physician. Chief Complaint and Reason For Visit Chief Complaint Date of Onset LAB Function Status Unknown. Plan of Care Unknown.
--- OUTSIDE RECORDS SUMMARY | 2017-02-12 13:51 | XMS REPORT ---
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
--- OUTSIDE RECORDS SUMMARY | 2017-02-12 13:51 | XMS REPORT | CCD ---
Author Author NARCISA MUELLER Organization Unknown Address [address] [place], [place] [address] Phone 0 Care Team Providers Care Skidder Runner Name Role Phone JERMAN GANN Attending Physician [phone] Vital Signs Unknown or Not Available. Allergies Allergy Code Allergy Type Reaction Status No Known Drug Allergies 0 No known drug allergies Active Procedures Unknown or Not Available. History of Immunizations Unknown or Not Available. Problems Unknown or Not Available. Results COMP METABOLIC - Collect Date/Time: 06/30/2016 09:14 Test Name Code Test Result Test Units Test Ref Range GLUCOSE 130 mg/dL L=70 H=110 BUN 18 mg/dL L=7 H=18 CREATININE 1.13 mg/ dL L=0.60 H=1.30 AGE 85 YEARS GFR 61.5 SODIUM 142 mmol/L L=136 H=145 POTASSIUM 3.9 mmol/ L L=3.5 H=5.1 CHLORIDE 103 mmol/L L=98 H=107 CO2 31 mmol/L L=21 H=32 CALCIUM 9.2 mg/dL L=8.5 H=10.1 AST 19 U/L L=15 H=37 ALT 34 U/L L=12 H=78 ALKALINE PHOS 82 U/ L L=46 H=116 TOTAL PROTEIN 7.4 g/ dL L=6.4 H=8.2 ALBUMIN 3.6 g/dL L=3.4 H=5.0 TOTAL BILI 0.70 mg/ dL L=0.00 H=1.00 HGB A1C - Collect Date/Time: 06/30/2016 09:14 Test Name Code Test Result Test Units Test Ref Range HGB A1C 6.0 % L=4.5 H=6.2 eAG 126 mg/dL PRO B-TYPE NATRIURETIC PEPTIDE - Collect Date/Time: 06/30/2016 09:14 Test Name Code Test Result Test Units Test Ref Range PBNP 961 pg/mL L=0 H=450 Active Medications Unknown or Not Available. Medications Administered During Visit Unknown or Not Available. Encounters Encounter Diagnosis Diagnosis Code Start Date Hyperglycemia, unspecified R739 2015 Social History Smoking Status Code Start Date End Date Unknown if ever smoked [id number] Patient Decision Aids Unknown or Not Available. Discharge Instructions You were admitted to [facility] on 06/30/2016 09:08 with a principal diagnosis of Hyperglycemia, unspecified You had the following tests done: COMP METABOLIC HGB A1C PRO B-TYPE NATRIURETIC PEPTIDE You were discharged from [facility] on 06/30/2016 09:08 Should you have any questions prior to [...]
--- OUTSIDE RECORDS SUMMARY | 2017-02-12 13:51 | XMS REPORT ---
Author Author Nishant Strauss [facility] eClinicalWorks Address Unknown Phone Unavailable Care Team Providers Care Grooming Salon Manager Name Role Phone Nishant Strauss CP Unavailable [...] I25.2 Active Problem Atherosclerotic heart disease of [place] coronary artery without angina pectoris I25.10 Active [...]
--- OUTSIDE RECORDS SUMMARY | 2017-02-12 13:51 | XMS REPORT | CCD ---
Author Author NARCISA MUELLER Organization Unknown Address [address] [place], [place] [id number] Phone 0 Care Team Providers Care Director Child Name Role Phone JERMAN AGNN Attending Physician [phone] Vital Signs Unknown or Not Available. Allergies Allergy Code Allergy Type Reaction Status No Known Drug Allergies 0 No known drug allergies Active Procedures Unknown or Not Available. History of Immunizations Unknown or Not Available. Problems Unknown or Not Available. Results COMP METABOLIC - Collect Date/Time: 10/12/2015 08:20 Test Name Code Test Result Test Units Test Ref Range GLUCOSE 104 mg/dL L=70 H=110 BUN 18 mg/dL L=7 H=18 CREATININE 1.30 mg/ dL L=0.60 H=1.30 AGE 84 YEARS GFR 55.8 SODIUM 138 mmol/L L=136 H=145 POTASSIUM 4.1 mmol/ L L=3.5 H=5.1 CHLORIDE 102 mmol/L L=98 H=107 CO2 29 mmol/L L=21 H=32 CALCIUM 9.2 mg/dL L=8.5 H=10.1 AST 16 U/L L=15 H=37 ALT 24 U/L L=12 H=78 ALKALINE PHOS 86 U/ L L=46 H=116 TOTAL PROTEIN 7.7 g/ dL L=6.4 H=8.2 ALBUMIN 3.8 g/dL L=3.4 H=5.0 TOTAL BILI 0.60 mg/ dL L=0.00 H=1.00 HGB A1C - Collect Date/Time: 10/12/2015 08:20 Test Name Code Test Result Test Units Test Ref Range HGB A1C 5.5 % L=4.5 H=6.2 eAG 111 mg/dL LIPID PANEL - Collect Date/Time: 10/12/2015 08:20 Test Name Code Test Result Test Units Test Ref Range CHOLESTEROL 184 mg/ dL L=0 H=200 TRIGLYCERIDES 133 mg /dL L=30 H=150 HDL 60 mg/dL L=40 H=60 LDL, CALC 97 mg/dL L=0 H=100 VLDL 27 mg/dL L=0 H=40 CHOL/HDL RISK 3.1 RATIO L=0.0 H=5.0 PT FASTING: YES N/A PSA - SCREENING - Collect Date/Time: 10/12/2015 08:20 Test Name Code Test Result Test Units Test Ref Range PSA SCREEN 0.21 ng/ mL L=0.00 H=4.00 MICROALBUMIN/CREATININE RATIO - Collect Date/Time: 10/12/2015 08:25 Test Name Code Test Result Test Units Test Ref Range MICROALBUMIN 2.8 mg/ dL L=0.1 H=2.0 CREAT, URINE 153.2 mg/dL MICROALB/CREAT 18.3 ug/mg L=0.0 H=29.9 PT/INR - Collect Date/Time: 10/12/2015 08:20 Test Name Code Test Result Test Units Test Ref Range PT 30.9 Secs L=9.2 H=10.8 INR 2.89 L=0.00 H=4.00 Active Medications Unknown or Not Available. Medications Administered During Visit Unknown or Not Available. Encounters Encounter Diagnosis Diagnosis Code Start Date Other abnormal glucose R7309 10/12/2015 Social History Smoking Status Code Start Date End Date Unknown if ever smoked [id number] Patient Decision Aids Unknown or Not Available. Discharge Instructions You were admitted to [facility] on 10/12/2015 with a principal diagnosis of Other abnormal glucose. Should you have any questions prior to [...]
--- OUTSIDE RECORDS SUMMARY | 2017-02-12 13:52 | XMS REPORT | CCD ---
Author Author NARCISA MUELLER Organization Unknown Address [address] [place], [place] [id number] Phone 0 Care Team Providers Care Extractor Machine Operator Name Role Phone JERMAN GANN Attending Physician [phone] Vital Signs Unknown or Not Available. Allergies Allergy Code Allergy Type Reaction Status No Known Drug Allergies 0 No known drug allergies Active Procedures Unknown or Not Available. History of Immunizations Unknown or Not Available. Problems Unknown or Not Available. Results COMP METABOLIC - Collect Date/Time: 07/08/2016 09:40 Test Name Code Test Result Test Units Test Ref Range GLUCOSE 140 mg/dL L=70 H=110 BUN 20 mg/dL L=7 H=18 CREATININE 1.15 mg/ dL L=0.60 H=1.30 AGE 85 YEARS GFR 60.3 SODIUM 142 mmol/L L=136 H=145 POTASSIUM 3.7 mmol/ L L=3.5 H=5.1 CHLORIDE 103 mmol/L L=98 H=107 CO2 31 mmol/L L=21 H=32 CALCIUM 8.8 mg/dL L=8.5 H=10.1 AST 17 U/L L=15 H=37 ALT 25 U/L L=12 H=78 ALKALINE PHOS 86 U/ L L=46 H=116 TOTAL PROTEIN 7.2 g/ dL L=6.4 H=8.2 ALBUMIN 3.6 g/dL L=3.4 H=5.0 TOTAL BILI 0.80 mg/ dL L=0.00 H=1.00 PRO B-TYPE NATRIURETIC PEPTIDE - Collect Date/Time: 07/08/2016 09:40 Test Name Code Test Result Test Units Test Ref Range PBNP 542 pg/mL L=0 H=450 PRO B-TYPE NATRIURETIC PEPTIDE - Collect Date/Time: 07/04/2016 09:20 Test Name Code Test Result Test Units Test Ref Range PBNP 657 pg/mL L=0 H=450 Active Medications Unknown or Not Available. Medications Administered During Visit Unknown or Not Available. Encounters Encounter Diagnosis Diagnosis Code Start Date Heart failure, unspecified I509 2015 Social History Smoking Status Code Start Date End Date Unknown if ever smoked [id number] Patient Decision Aids Unknown or Not Available. Discharge Instructions You were admitted to [facility] on 07/04/2016 09:10 with a principal diagnosis of Heart failure, unspecified You had the following tests done: COMP METABOLIC PRO B-TYPE NATRIURETIC PEPTIDE PRO B-TYPE NATRIURETIC PEPTIDE You were discharged from [facility] Should you have any questions prior to [...]
--- OUTSIDE RECORDS SUMMARY | 2017-02-12 13:52 | XMS REPORT | Referral Summary ---
Author Author [facility] Organization [facility] Address Unknown Phone Unavailable Care Team Providers Care Pompom Maker Name Role Phone Shannan Villarreal Primary Care Physician [phone] Encounter VC Date(s): 04/09/15 - 04/09/15 [facility] [address] [place] [address] [place]ER Kang [address] Discharge Diagnosis: BPH Discharge Diagnosis: History of [...] Daily, # 30 caps, 0 Refill(s), Pharmacy: [id number], 1 caps Oral [...] 1.06 10*3 [1.00-4.00 10*3] (04/09/15 8:55 AM) [place] Absolute 0.89 10*3 [0.20-0.80 10*3] *HI* (04/09/15 [...] Where: When: Toi Saunders [address] [place] [address] Business (1) Within 3 to 5 days Comments: Follow Up With: Where: When: Donta Rey [address] [place] [address] Drive; [address] [place], [place] [phone] Business (1) In 1 year 04/09/2016 Comments: [...] patient. Ordered: Office Visit Level 4 Est 97589 Prostate Specific Antigen History of bladder cancer Ordered: Office Visit Level 4 Est 53287 History of kidney stones Ordered: Office Visit Level 4 Est 76311 Orders: finasteride, See Instructions, TAKE ONE TABLET BY MOUTH ONCE DAILY, # 90 tabs, 3 Refill(s), TAKE ONE TABLET BY MOUTH ONCE DAILY
--- OUTSIDE RECORDS SUMMARY | 2017-02-12 13:52 | XMS REPORT | Referral Summary ---
Author Organization Unknown Address Unknown Phone Unavailable Care Team Providers Care Scouring Train Operator Chief Name Role Phone MikeglennyToi Primary Care Physician [phone] Encounter VC Date(s): 11/14/14 - 11/14/14 [facility] [address] [place] [address] Dr Mcdermott, [place]ER [address] Discharge Diagnosis: History of kidney stones Discharge Disposition: Home or Self Care Attending Physician: Donta Rey JR, MD Admitting Physician: Donta Rey JR, MD Vital Signs Most recent to 1 oldest [Reference Range]: Temperature Oral 36.6 degC [35.8-37.3 degC] (11/14/14 3:17 PM) Apical Heart Rate 76 bpm [60-100 bpm] (11/14/14 3:17 PM) Blood Pressure 148/78 mmHg [90-140/60-90 mmHg] *HI* (11/14/14 3:17 PM) Problem List Condition Effective Dates Status Health Status Informant Kidney Active stone(Confirmed) Bladder Active cancer(Confirmed) Allergies, Adverse Reactions, Alerts No Known Medication [...] Daily, # 90 tabs, 2 Refill(s), Pharmacy: [id number], 1 tabs Oral Daily Start [...] 0 Refill(s) Start Date: 03/11/14 Status: Ordered [place] 5 mg-325 mg oral tablet 1 tabs, Oral, q6hr, as needed for pain, # 30 tabs, 0 Refill(s) Start Date: 11/14/14 Stop Date: 11/28/14 Status: Ordered tamsulosin 0.4 mg oral capsule 1 caps, Oral, Daily, # 30 caps, 0 Refill(s), Pharmacy: [id number], 1 caps Oral Daily Start [...] Author: Donta Rey JR, MD Date : 11/14/14 Follow Up With: Where: When: Donta [address]; [place] [address] Business (1) In 6 months 05/14/2015 Comments: Follow Up With: Where: When: Toi Saunders [address] [place] [address] Business (1) Within 3 to 5 days Comments: Follow Up With: Where: When: Donta [address]; [place] [address] Business (1) In 6 days 11/20/2014 Comments:
--- OUTSIDE RECORDS SUMMARY | 2017-02-12 13:52 | XMS REPORT | Referral Summary ---
Author Author [facility] Organization [facility] Address Unknown Phone Unavailable Care Team Providers Care Printing Equipment Mechanic Apprentice Name Role Phone Shannan Villarreal Primary Care Physician [phone] Encounter VC Date(s): 04/09/15 - 04/09/15 [facility] [address] [place] [address] [place]ER Kang [id number] Discharge Diagnosis: BPH Discharge Diagnosis: [...] Daily, # 30 caps, 0 Refill(s), Pharmacy: [facility], 1 caps Oral [...] 1.06 10*3 [1.00-4.00 10*3] (04/09/15 8:55 AM) [place] Absolute 0.89 10*3 [0.20-0.80 10*3] *HI* (04/09/15 [...] Where: When: Toi Saunders [address] [place] [address] Business (1) Within 3 to 5 days Comments: Follow Up With: Where: When: Donta Rey [address] [place] [address] Drive; [address] [place], [place] [phone] Business (1) In 1 year 04/09/2016 Comments: [...] patient. Ordered: Office Visit Level 4 Est 33609 Prostate Specific Antigen History of bladder cancer Ordered: Office Visit Level 4 Est 96948 History of kidney stones Ordered: Office Visit Level 4 Est 25659 Orders: finasteride, See Instructions, TAKE ONE TABLET BY MOUTH ONCE DAILY, # 90 tabs, 3 Refill(s), TAKE ONE TABLET BY MOUTH ONCE DAILY
--- OUTSIDE RECORDS SUMMARY | 2017-02-12 13:52 | XMS REPORT | CCD ---
Author Author NARCISA MUELLER Organization Unknown Address [address] [place], [place] [phone] Phone 0 Care Team Providers Care Stretch Press Operator Name Role Phone FOZIA TINEO Attending Physician 0 JERMAN GANN Rounding Physician [phone] Vital Signs Unknown or Not Available. Allergies Allergy Code Allergy Type Reaction Status No Known Drug Allergies 0 No known drug allergies Active Procedures Unknown or Not Available. History of Immunizations Unknown or Not Available. Problems Unknown or Not Available. Results PT/INR - Collect Date/Time: 08/17/2015 08:20 Test Name Code Test Result Test Units Test Ref Range PT 24.8 Secs L=9.2 H=10.8 INR 2.35 L=0.00 H=4.00 PT/INR - Collect Date/Time: 08/07/2015 08:44 Test Name Code Test Result Test Units Test Ref Range PT 20.0 Secs L=9.2 H=10.8 INR 1.92 L=0.00 H=4.00 Active Medications Unknown or Not Available. Medications Administered During Visit Unknown or Not Available. Encounters Encounter Diagnosis Diagnosis Code Start Date Acute embolism and thrombosis of unspecified deep veins of unspecified lower extremity [id number] 08/07/2015 Social History Smoking Status Code Start Date End Date Unknown if ever smoked [id number] Patient Decision Aids Unknown or Not Available. Discharge Instructions You were admitted to [facility] on 08/07/2015 with a principal diagnosis of Acute embolism and thrombosis of unspecified deep veins of unspecified lower extremity. Should you have any questions prior to [...]
--- OUTSIDE RECORDS SUMMARY | 2017-02-12 13:52 | XMS REPORT | Referral Summary ---
Author Author [facility] Organization [facility] Address Unknown Phone Unavailable Care Team Providers Care Superintendent Transmission Name Role Phone Shannan Villarreal Primary Care Physician [phone] Encounter VC Date(s): 04/09/15 - 04/09/15 [facility] [address] [place] [address] [place]ER Kang [id number] Discharge Diagnosis: [...] Daily, # 30 caps, 0 Refill(s), Pharmacy: [facility], 1 caps Oral [...] 1.06 10*3 [1.00-4.00 10*3] (04/09/15 8:55 AM) [place] Absolute 0.89 10*3 [0.20-0.80 10*3] *HI* (04/09/15 [...] Where: When: Toi Saunders [address] [place] [address] Business (1) Within 3 to 5 days Comments: Follow Up With: Where: When: Donta Rey [address] [place] [address] Drive; [address] [place], [place] [phone] Business (1) In 1 year 04/09/2016 Comments: [...] patient. Ordered: Office Visit Level 4 Est 64968 Prostate Specific Antigen History of bladder cancer Ordered: Office Visit Level 4 Est 12098 History of kidney stones Ordered: Office Visit Level 4 Est 74489 Orders: finasteride, See Instructions, TAKE ONE TABLET BY MOUTH ONCE DAILY, # 90 tabs, 3 Refill(s), TAKE ONE TABLET BY MOUTH ONCE DAILY
--- OUTSIDE RECORDS SUMMARY | 2017-02-12 13:52 | XMS REPORT | CCD ---
Author Author PIPE CRANDALL Organization Unknown Address [address] [place] [phone] Phone 0 Care Team Providers Care High School English Teacher Name Role Phone JERMAN GANN Attending Physician [phone] Vital Signs Unknown. Allergies Allergy Code Allergy Type Reaction Status No Known Drug Allergies 0 No known drug allergies Active Procedures Unknown. History of Immunizations Unknown. Problems Unknown. Results COMP METABOLIC Test Name Code Test Result Test Units Test Date/Time GLUCOSE 92.0000 mg/ dL 02/28/2014 07:40 BUN 16.0000 mg/dL 02/28/2014 07:40 CREATININE 1.0000 mg /dL 02/28/2014 07:40 AGE 83.0000 YEARS 02/28/2014 07:40 GFR 75.7000 02/28/2014 07:40 SODIUM 139.0000 mmol /L 02/28/2014 07:40 POTASSIUM 3.8000 mmol/L 02/28/2014 07:40 CHLORIDE 100.0000 mmol/L 02/28/2014 07:40 CO2 32.0000 mmol/L 02/28/2014 07:40 CALCIUM 9.3000 mg/ dL 02/28/2014 07:40 AST 16.0000 U/L 02/28/2014 07:40 ALT 23.0000 U/L 02/28/2014 07:40 ALKALINE PHOS 78.0000 U/L 02/28/2014 07:40 TOTAL PROTEIN 7.3000 g/dL 02/28/2014 07:40 ALBUMIN 3.5000 g/dL 02/28/2014 07:40 TOTAL BILI 0.6000 mg /dL 02/28/2014 07:40 HGB A1C Test Name Code Test Result Test Units Test Date/Time HGB A1C 5.7000 % 02/28/2014 07:40 eAG 117.0000 mg/dL 02/28/2014 07:40 CBC W/ DIFF Test Name Code Test Result Test Units Test Date/Time WBC 8.1000 x10^3 02/28/2014 07:40 RBC 5.1000 x10^6 02/28/2014 07:40 HEMOGLOBIN 16.1000 g /dL 02/28/2014 07:40 HEMATOCRIT 47.2000 % 02/28/2014 07:40 MCV 93.0000 fL 02/28/2014 07:40 MCH 31.6000 pg 02/28/2014 07:40 MCHC 34.2000 g/dL 02/28/2014 07:40 RDW 13.3000 % 02/28/2014 07:40 PLATELETS 209.0000 x10^3 02/28/2014 07:40 MPV 8.6000 fL 02/28/2014 07:40 NEUTROPHILS 55.6000 % 02/28/2014 07:40 LYMPHOCYTES 20.1000 % 02/28/2014 07:40 MONOCYTES 13.2000 % 02/28/2014 07:40 EOSINOPHILS 10.5000 % 02/28/2014 07:40 BASOPHILS 0.6000 % 02/28/2014 07:40 REFLEX MAN DIFF NO N /A 02/28/2014 07:40 Medications Unknown. Medications Administered Unknown. Encounters Unknown. Social History Smoking Status Code Start Date End Date Unknown if ever smoked [id number] Patient Decision Aids Unknown. Discharge Instructions You were admitted to [facility] on 02/28/2014. You were discharged from [facility] on 02/28/2014. Should you have any questions prior to discharge, please contact a member of your healthcare team. If you have left the hospital and have any questions, please contact your primary care physician. Chief Complaint and Reason For Visit Chief Complaint Date of Onset LAB Function Status Unknown. Plan of Care Unknown. Referral/Transition of Care Unknown.
--- OUTSIDE RECORDS SUMMARY | 2017-02-12 13:52 | XMS REPORT | CCD ---
Author Author PIPE CRANDALL Organization Unknown Address [address] [place] [phone] Phone 0 Care Team Providers Care Informatics Pharmacist Name Role Phone FOZIA TINEO Attending Physician 0 JERMAN GANN Rounding Physician [phone] Vital Signs Unknown or Not Available. Allergies Allergy Code Allergy Type Reaction Status No Known Drug Allergies 0 No known drug allergies Active Procedures Unknown or Not Available. History of Immunizations Unknown or Not Available. Problems Unknown or Not Available. Results COMP METABOLIC - Collect Date/Time: 06/02/2015 08:00 Test Name Code Test Result Test Units Test Ref Range GLUCOSE 125 mg/dL L=70 H=110 BUN 18 mg/dL L=7 H=18 CREATININE 1.20 mg/ dL L=0.60 H=1.30 AGE 84 YEARS GFR 61.2 SODIUM 139 mmol/L L=136 H=145 POTASSIUM 3.9 mmol/ L L=3.5 H=5.1 CHLORIDE 104 mmol/L L=98 H=107 CO2 29 mmol/L L=21 H=32 CALCIUM 8.9 mg/dL L=8.5 H=10.1 AST 17 U/L L=15 H=37 ALT 25 U/L L=12 H=78 ALKALINE PHOS 90 U/ L L=46 H=116 TOTAL PROTEIN 7.6 g/ dL L=6.4 H=8.2 ALBUMIN 3.8 g/dL L=3.4 H=5.0 TOTAL BILI 0.50 mg/ dL L=0.00 H=1.00 HGB A1C - Collect Date/Time: 06/02/2015 08:00 Test Name Code Test Result Test Units Test Ref Range HGB A1C 5.7 % L=4.5 H=6.2 eAG 117 mg/dL PT/INR - Collect Date/Time: 06/02/2015 08:00 Test Name Code Test Result Test Units Test Ref Range PT 26.4 Secs L=9.2 H=10.8 INR 2.49 L=0.00 H=4.00 Active Medications Unknown or Not Available. Medications Administered During Visit Unknown or Not Available. Encounters Encounter Diagnosis Diagnosis Code Start Date HYPERTENSION NOS 4019 06/02/2015 Social History Smoking Status Code Start Date End Date Unknown if ever smoked [id number] Patient Decision Aids Unknown or Not Available. Discharge Instructions You were admitted to [facility] on 06/02/2015 with a principal diagnosis of HYPERTENSION NOS. Should you have any questions prior to [...]
--- OUTSIDE RECORDS SUMMARY | 2017-02-12 13:53 | XMS REPORT | CCD ---
Author Author NARCISA MUELLER Organization Unknown Address [address], [place] [phone] Phone 0 Care Team Providers Care Onboarding Specialist Name Role Phone JERMAN GANN Attending Physician [phone] Vital Signs Unknown or Not Available. Allergies Allergy Code Allergy Type Reaction Status No Known Drug Allergies 0 No known drug allergies Active Procedures Unknown or Not Available. History of Immunizations Unknown or Not Available. Problems Unknown or Not Available. Results PT/INR - Collect Date/Time: 09/28/2015 11:30 Test Name Code Test Result Test Units Test Ref Range PT 20.4 Secs L=9.2 H=10.8 INR 1.95 L=0.00 H=4.00 Active Medications Unknown or Not Available. Medications Administered During Visit Unknown or Not Available. Encounters Encounter Diagnosis Diagnosis Code Start Date Acute embolism and thrombosis of unspecified deep veins of unspecified lower extremity [id number] 09/28/2015 Social History Smoking Status Code Start Date End Date Unknown if ever smoked [id number] Patient Decision Aids Unknown or Not Available. Discharge Instructions You were admitted to [facility] on 09/28/2015 with a principal diagnosis of Acute embolism and thrombosis of unspecified deep veins of unspecified lower extremity. You were discharged from [facility] on 09/28/2015. Should you have any questions prior to [...]
--- NOTE | 2017-02-12 14:00 | NUR ---
REPORT TO FANNY FORBES
[2017-02-12] MEDS ORDERED: POTA20TA10 PO (14:13)
--- NOTE | 2017-02-12 14:15 | NUR ---
PROVIDER DR. SINGH AT BEDSIDE FOR EXAM.
[2017-02-12] MEDS ORDERED: WARF1TAB6 PO (14:16)
[2017-02-12] MEDS ORDERED: [UNRECOGNIZED DRUG - CODE] PO (14:16)
[2017-02-12] MEDS ORDERED: WARF10TA4 PO (14:16)
[2017-02-12] MEDS ORDERED: FLUT16SP EA NOSTRIL (14:18)
[2017-02-12] MEDS ORDERED: METF500T4 PO (14:18)
[2017-02-12] MEDS ORDERED: TAMS0.4C47 PO (14:18)
[2017-02-12] MEDS ORDERED: TETR-47 BOTH EYES (14:18)
--- NOTE | 2017-02-12 14:25 | ERPDOC ---
Departure Disposition Decision Date: February 12, 2017 Disposition Decision Time: 16:22 Disposition: 01 DISCHARGED HOME, SELF-CARE Impression Impression Impression: Primary Impression: Contusion of scalp Additional Impressions: Laceration of right forearm Laceration of left hand Severity: Moderate Condition: Improved Seen By: Physician only Referrals: KIRSTIE GANN (Family) Patient Instructions: Fall Prevention (ED) Problems/Meds/Labs Reviewed?: Yes Medications reviewed and manag: Yes Additional Instructions: Keep wounds clean and dry. Remove sutures in 7-10 days. Follow up care ordered?: Yes Mental Status: Alert, Oriented HPI - Fall/Injury General Chief Complaint: Fall Stated Complaint: FALL-LAC TO RT EYE, RT SHOULDER PAIN, RT HAND LAC Time Seen by Provider: 14:00 HPI - Fall/Injury Initial Comments 86-year-old gentleman who presents status post fall. Patient was at the gas station, tripped over the gas hose and fell to the ground. He landed on his right shoulder and bumped his head. He had no loc or other sx from hitting his head. He has to go to [place] tomorrow for his sisters and wants to make sure he did not break his arm in the fall. Does take coumadin, but does not want a CT head. He does have skin tears on right arm. 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 Tonsillectomy Removal of bladder tumor Cystoscopies Past Medical History Metabolic: cancer, hypercholesterolemia, hypertension Cardiac: CAD Surgical History Cardiac: cardiac bypass, pacemaker Vaccines Hx Influenza Vaccination: Yes (fall 2013) Hx Pneumococcal Vaccination: Yes (fall 2013) Social History # of Packs/Tins per Day: 2 # of Years: 50+ Sexuality: female partner Review of Systems Pulmonary Respiratory: dyspnea Comments chronic dyspnea Musculoskeletal General: see HPI Integumentary Skin: see HPI Neurological General: see HPI All other Systems All Other Systems: Reviewed and Negative Physical Exam General General Nourishment: well nourished, well developed, appears stated age Distress Description bleeding form skin tears in arm Vitals and Pain First Documented Vital Signs Date Time Temp Pulse Resp B/P Pulse Ox O2 Delivery O2 Flow Rate FiO2 02/12/17 13:47 97.7 92 22 143/69 93 Room Air Weight: Kilograms: 97.200 Height (feet): 5 Height (inches): 10.00 Triage Pain Scale: Normal Exams: Neurologic: Patient is alert, and oriented, motor/sensory/cerebellar, exams w/ o gross deficits, to observation Psychiatric: Patient exhibits, appropriate attention, emotion and affect Integumentary (brief) Comments Large 12 cm skin tear in dog ear fashion right arm. Small hematoma over right eye. Flexor aspect of right fifth MCP has a laceration/avulsion into subcutaneous fat. Differential Diagnoses Considering: Other (concussion, subdural hematoma, contusion to scalp, skin tears, laceration to hand, contusion to shoulder, rotator cuff injury) Progress Results/Orders Orders Procedure Category Date Status Time Humerus Right 2 View RAD 02/12/[address] Head W/O Contrast CT 02/12/17 Taken Tetanus,Diphth,A PHA 02/12/17 Complete Pertus (Tdap) (Adacel) 16:00 Lidocaine 1% PHA 02/12/17 Complete (Xylocaine 1%) 16:00 Medications Current ED Medications Diphtheria/ Tetanus/Acell Pertussis (Adacel) 0.5 ml O ONCE IM Last administered on 02/12/17 16:01; Start 02/12/17 at 16:00; Stop 02/12/17 at 16:01 ; Status DC Lidocaine HCl (Xylocaine 1%) 100 mg O ONCE INFIL Last administered on 16:01; Start 02/12/17 at 16:00; Stop 02/12/17 at 16:01; Status DC Progress Progress X-ray of shoulder is negative, for any acute bony changes. Patient does seem to have some rotator cuff strain. He also has skin tear approximately 13 cm on right arm. And contusion over right eye. CT brain was performed and was negative for bleed. This was done because he is on Coumadin. Laceration of right hand was also noted at fifth MCP. This was scrubbed, anesthetized with 1% lidocaine without epi, and closed with 3 interrupted sutures of 3-0 Prolene. Skin tear was closed with Pamagram. Patient is to remove sutures in 7-10 days, follow-up with his primary care provider. TDAP given. JACQUIE SINGH MD February 12, 2017 14:25
--- NOTE | 2017-02-12 14:33 | NUR ---
XRAY PORTABLE XRAY AT BEDSIDE.
--- NOTE | 2017-02-12 14:46 | NUR ---
CT PT TO CT BY CART AT THIS TIME.
--- OUTSIDE RECORDS SUMMARY | 2017-02-12 15:18 | XMS REPORT | Continuity of Care Document ---
Author Author [facility] Organization [facility] Address Unknown Phone Unavailable Allergies Active Description [...] Status Pt. Type Provider Facility Loc./Unit Complaint [id number] 02/19/2013 13:22:00 2012 23:59:59 CLS Outpatient Kalli HARGROVE, Diana [facility]
[2017-02-12] MEDS ORDERED: TETANUS,DIPHTH,a PERTUS (Tdap) 0.5 ML VIAL IM ONE (16:00)
[2017-02-12] MEDS ORDERED: LIDOCAINE 1% (10mg/ml) 30ml SDV INFIL ONE (16:00)
--- NOTE | 2017-02-12 16:04 | NUR ---
SUTURE DR. SINGH AT BEDSIDE FOR SUTURE.
[2017-02-12] MEDS ORDERED: NEOMYCIN/POLYM/BACITR OINT PACKET TOP ONE (16:30)
[2017-02-12 16:38] VITALS: BP 136/85; PULSE 89; RESP 16; TEMP 97.8; O2SAT 93
--- NOTE | 2017-02-12 16:38 | NUR ---
DISMISSAL INSTRUCTIONS REVIEWED. SIGNS OF INFECTION & WOUND CARE REVIEWED. PT VERBALIZES UNDERSTANDING. DISCHARGED AMB
--- NOTE | 2017-02-13 07:56 | DI ---
Indication: ITS.REASON: fall with contusion to forehead, on coumadin. PROCEDURE: CT HEAD W/O CONTRAST: Encounter: Initial Comparison: March 05, 2015 Technique: Axial CT images through the head were performed without contrast. Iterative Reconstruction dose reducing technique was utilized. FINDINGS: Moderate generalized atrophy. The ventricles are of normal size, shape, and configuration for the patient's age. There is no evidence of acute intracranial hemorrhage, midline displacement, or mass effect. There are scattered areas of low attenuation in the white matter which most likely represent changes of chronic microvascular ischemia. The CT attenuation of the brain parenchyma is otherwise normal within the cerebellum, brain stem, and cerebral hemispheres. The tympanic cavities and mastoid air cells are free of appreciable disease. There are no definite fractures of the skull base, calvarium, or visualized portion of the midface. Right sphenoid sinus disease. IMPRESSION: No CT evidence of acute traumatic intracranial injury. There is a preliminary report by virtual radiologic. .
--- NOTE | 2017-02-13 07:57 | DI ---
Indication: ITS.REASON: fall with right arm and shoulder pain PROCEDURE: HUMERUS RIGHT 2 VIEW: Encounter: Initial Comparison: None Findings: There is no acute fracture, dislocation or malalignment identified. Impression: No acute osseous abnormality. .
== END 2017-02-12 16:38 | disposition home or self-care (01) ==
LOC: ED 13:44
DX: S00.11XA Contusion of right eyelid and periocular area, initial encounter (principal); S51.811A Laceration without foreign body of right forearm, initial encounter; S61.411A Laceration without foreign body of right hand, initial encounter; Z79.01 Long term (current) use of anticoagulants; W01.0XXA Fall on same level from slipping, tripping and stumbling without subsequent striking against object, initial encounter; Y93.89 Activity, other specified; Y92.524 Gas station as the place of occurrence of the external cause; Y99.8 Other external cause status
CPT/HCPCS: 90471; 90715